=== PATIENT | female | born 2000 | race Caucasian/White ===

== ENCOUNTER 2020-06-28 17:40 | Outpatient (REF) | payer MEDICAID, SELFPAY | END 2020-06-28 17:41 | disposition home or self-care (01) | LOC: HO.LAB 17:40 | PROVIDERS: Visit Provider Internal Medicine | DX: Z20.828 Contact with and (suspected) exposure to other viral communicable diseases (principal) | CPT/HCPCS: C9803; U0003 ==

== ENCOUNTER 2020-07-20 10:44 | Emergency (ER) | payer MEDICAID, SELFPAY ==
[2020-07-20 11:43] VITALS: BP 94/38; PULSE 65; RESP 18; TEMP 36.9; O2SAT 100; BMI 20.1
--- NOTE | 2020-07-20 11:54 | ED_ITS ---
HPI - Female Genitourinary General Chief complaint: Urogenital-Female Stated complaint: unable to urinate Time Seen by Provider: 07/20/20 11:54 Source: patient Mode of arrival: ambulatory Limitations: no limitations History of Present Illness HPI Narrative: Pain and frequency for one week, no blood. Denies current . MD elicited complaint: dysuria Onset (ago): week(s) Severity: moderate Urinary symptoms: Dysuria and Frequency Related Data Previous Rx's Medication Instructions Recorded cephalexin [Keflex] 500 mg PO QID #20 cap 07/20/20 Allergies Allergy/AdvReac Type Severity Reaction Status Date / Time No Known Allergies Allergy Verified 07/20/20 11:46 Review of Systems Constitutional: Constitutional: Reports no additional constitutional complaints Eyes: Eyes: Reports no additional eye complaints ENT: Denies dizziness Cardiovascular: Cardiovascular: Reports no additional cardiovascular complaints Respiratory: Respiratory: Reports as per HPI Gastrointestinal: Gastrointestinal: Reports no additional gastrointestinal complaints Genitourinary: Genitourinary: Reports no additional female genitourinary complaints Musculoskeletal: Musculoskeletal: Reports no additional musculoskeletal complaints Integumentary/Breasts: Skin/Breast: Denies rash Neurologic: Reports system reviewed and no additional complaints, except as documented, Denies dizziness and Denies Sensory deficit (Neuro) Psychiatric: Psychiatric: Denies anxiety [facility] Past Medical History Medical History No known health problems Social History Social History Advance Directives: No Advance Directives Information Provided: Yes Physical Exam Vital Signs: Vital Signs: Last Vital Signs Temp 98.4 F 07/20/20 11:43 Pulse 65 07/20/20 11:43 Resp 18 07/20/20 11:43 BP 94/38 L 07/20/20 11:43 Pulse Ox 100 07/20/20 11:43 Body Mass Index 20.1 Const: General: healthy appearing Nutritional Appearance: average body habitus Orientation/consciousness: oriented to person and patient oriented x3 Limitations: no limitations HENMT: Head: Yes normal to inspection Ears: external ears normal General nose exam: Normal external nose present Mouth: Normal oral and palatal mucosa present and oropharynx normal Throat: Yes posterior oropharynx normal Eyes: General: appearance normal, both eyes and all related structures Neck: Other: supple Neck: Yes normal visual inspection Chest: Chest palpation & inspection: normal inspection of the chest Resp: Auscultation: clear to auscultation bilaterally Cardio: Jugular venous distension: no JVD Rate: regular rate Rhythm: regular rhythm Heart sounds: S1 normal heart sound present and S2 normal heart sound present GI: Inspection: Yes normal to inspection Palpation (GI): Soft to palpation, nontender and No hepatosplenomegaly present Auscultation: normal bowel sounds : General: Yes no CVA tenderness Back/Spine/Pelvis: Back: no CVA tenderness Skin: General skin exam: no rashes or lesions noted Neuro: General: oriented to person and patient oriented x3 Cranial nerves: Yes CN's II-XII intact bilaterally Motor exam (neuro): 5/5 motor strength present throughout Sensory Exam: No Sensory deficit (Neuro) Extrem: General: Yes normal to inspection Psych: Appearance: grossly normal Course Course Course Narrative: UA consistent with UtI will dc on keflex MDM - Female Genitourinary Differential Diagnosis Differential diagnosis: Likely urinary tract infection and cystitis Lab Data Labs: Lab Results 07/20/20 Range/Units 12:10 Urine Color YELLOW Urine Appearance CLOUDY Urine pH 6.5 (5.0-8.0) Ur Specific [place] 1.025 (1.005-1.025) Urine Protein 1+ H (NEG-TRACE) MG/DL Urine Glucose (UA) NEG (NEG) MG/DL Urine Ketones NEG (NEG) MG/DL Urine Blood 3+ H (NEG) Urine Nitrite NEG (NEG) Ur Leukocyte Esterase 1+ H (NEG) Urine RBC 15-29 H (0) /HPF Urine WBC 15-29 H (0-4) /HPF Ur Squamous Epith Cells 2+ /LPF Urine Bacteria 1+ /LPF Urine Mucus 2+ /LPF Urine Test NEGATIVE (NEGATIVE) Discharge Plan Discharge Clinical Impression: Urinary tract infection Patient Disposition: Home, Self-Care Instructions: Urinary Tract Infection in Women (ED), Dysuria (ED) Prescriptions: New cephalexin [Keflex] 500 mg capsule 500 mg PO QID Qty: 20 RF: 0 Referrals: Mesfin Cabrales NP [Primary Care Provider] - 2 days
[2020-07-20 12:22] LABS: Appearance Urine CLOUDY; Color Urine YELLOW; Glucose Urine UA NEG (NEG); Leukocyte Esterase Urine 1+ (NEG); Nitrite Urine NEG (NEG); PH 6.5 (5.0-8.0); Specific Gravity - Urine 1.025 (1.005-1.025); Urine Blood 3+ (NEG); Urine Ketones NEG (NEG); Urine Protein 1+ MG/DL (NEG-TRACE)
[2020-07-20 12:23] LABS: UPreg QC Valid YES; Urine Pregnancy NEGATIVE (NEGATIVE)
[2020-07-20 12:36] LABS: Bacteria Urine 1+ /LPF; Mucus Urine 2+ /LPF; Squamous Epithelial Cell Urine 2+ /LPF
[2020-07-20] MEDS: cephALEXin 500 MG CAPSULE PO (13:13)
== END 2020-07-20 13:18 | disposition home or self-care (01) ==
PROVIDERS: Emergency Provider Emergency Medicine; PCP Nurse Practitioner Family
DX: N39.0 Urinary tract infection, site not specified (principal)
CPT/HCPCS: 81001; 81025; 87086; 99283

== ENCOUNTER 2020-07-25 16:34 | Emergency (ER) | payer MEDICAID, SELFPAY ==
[2020-07-25 16:44] VITALS: BP 100/60; PULSE 68; RESP 16; TEMP 36.6; O2SAT 99; BMI 19.2
[2020-07-25 17:03] LABS: Glucose Urine UA NEG (NEG); Leukocyte Esterase Urine NEG (NEG); Nitrite Urine NEG (NEG); PH 5.5 (5.0-8.0); Specific Gravity - Urine >= 1.030 (1.005-1.025); Urine Blood TRACE (NEG); Urine Ketones 5 MG/DL (NEG); Urine Protein 1+ MG/DL (NEG-TRACE)
[2020-07-25 17:05] LABS: Appearance Urine CLEAR; Color Urine YELLOW
[2020-07-25 17:21] LABS: Bacteria Urine TRACE /LPF; Mucus Urine 1+ /LPF; Squamous Epithelial Cell Urine TRACE /LPF
[2020-07-25 17:43] VITALS: BP 99/64; PULSE 63; RESP 16; TEMP 36.4; O2SAT 100
--- NOTE | 2020-07-25 17:45 | ED.FEMALEGU ---
HPI - Female Genitourinary General Chief complaint: Urogenital-Female Stated complaint: painful urination Time Seen by Provider: 07/25/20 17:14 Source: patient Mode of arrival: ambulatory Limitations: no limitations History of Present Illness HPI Narrative: 19-year-old female with no significant past medical history presents for dysuria. Was seen on 07/20/2020 and given Keflex for UTI. Patient then followed up with her primary care on 07/22/2020 and she was advised to stop taking the antibiotic. Patient presents with continued symptoms of UTI. She does not describe fevers, chills, abdominal pain, abdominal distention, weakness, or palpitations. She denies abnormal vaginal bleeding or vaginal discharge. MD elicited complaint: dysuria and UTI Onset (ago): day(s) (5) Severity: moderate Female Urogenital Radiation: Non-Radiating Severity scale (1-10): 6 Quality of pain: burning Consistency: intermittent (Only when voiding) Vaginal discharge: none Vaginal bleeding: none Urinary symptoms: Dysuria Exacerbating factors: urination Associated symptoms: denies other symptoms Treatment prior to arrival: none Sexual activity: Yes Patient : No Related Data Previous Rx's Medication Instructions Recorded cephalexin [Keflex] 500 mg PO QID #20 cap 07/20/20 cephalexin [Keflex] 500 mg PO Q6H 3 Days #12 cap 07/25/20 phenazopyridine [Pyridium] 200 mg PO TID PRN #10 tab 07/25/20 Allergies Allergy/AdvReac Type Severity Reaction Status Date / Time No Known Allergies Allergy Verified 07/20/20 11:46 Review of Systems Review of Systems: Constitutional: No Fever, No Chills ENT/Mouth: No sore throat Eyes: No Eye Pain, No Swelling, No Redness Cardiovascular: No Chest Pain, No SOB Respiratory: No Cough, No Sputum, No Wheezing Gastrointestinal: No Nausea, no Vomiting, No Diarrhea, no abdominal pain Genitourinary: positive Dysuria, positive urinary frequency, no Hematuria, no Flank Pain, no hesitancy Musculoskeletal: No joint pain, No Myalgias Skin: No Skin Lesions, No rash Neuro: No Weakness, No Numbness, No Headache Psych: No Anxiety/Panic, No Depression Heme/Lymph: No Bruising, No Lymphadenopathy Endocrine: No Polyuria, No Polydipsia Yes all other systems are reviewed and are negative PMFSH Past Medical History Attestation statement: The following information was validated with the patient. Source: old records reviewed Medical History No known health problems Social History Social History Smoking Status: Never smoker Use of substances other than those prescribed or required for medical reasons: No Advance Directives: No Advance Directives Information Provided: No Physical Exam Vital Signs: Vital Signs: Last Vital Signs Temp 97.5 F 07/25/20 17:43 Pulse 63 07/25/20 17:43 Resp 16 07/25/20 17:43 BP 99/64 07/25/20 17:43 Pulse Ox 100 07/25/20 17:43 Body Mass Index 19.2 Appearance: Alert. Oriented X3. No acute distress. Eyes: Pupils equal, round and reactive to light. ENT: Pharynx normal. Neck: Normal inspection. Neck supple. CVS: Normal heart rate and rhythm. Pulses normal. Respiratory: No respiratory distress. Breath sounds normal. Abdomen: Soft and nontender. Skin: Skin warm and dry. Normal skin color. Normal skin turgor. Extremities: No lower extremity edema. Neuro: No motor deficit. No sensory deficit. Course Course Course Narrative: 19-year-old female with no significant past medical history recently treated for UTI, was told by her primary care physician to stop taking the Keflex that was prescribed to her on 07/20/2020. Plans to repeat urinalysis and U preg. Urinalysis indicative of UTI. We will restart her Keflex and give Pyridium for pyuria. test is negative. Patient verbalized understanding of and agrees to plan of care to discharge home. MDM - Female Genitourinary Differential Diagnosis Differential diagnosis: Likely urinary tract infection and cystitis Medical Records Attestation: I reviewed the patient's medical records. Lab Data Attestation: I reviewed the patient's lab results. Labs: Lab Results 07/25/20 07/25/20 Range/Units 16:52 17:58 Urine Color YELLOW Urine Appearance CLEAR Urine pH 5.5 (5.0-8.0) Ur Specific [place] >= 1.030 H (1.005-1.025) Urine Protein 1+ H (NEG-TRACE) MG/DL Urine Glucose (UA) NEG (NEG) MG/DL Urine Ketones 5 (NEG) MG/DL Urine Blood TRACE (NEG) Urine Nitrite NEG (NEG) Ur Leukocyte Esterase NEG (NEG) Urine RBC 1-4 (0) /HPF Urine WBC 1-4 (0-4) /HPF Ur Squamous Epith Cells TRACE /LPF Urine Bacteria TRACE /LPF Urine Mucus 1+ /LPF Urine Test NEGATIVE (NEGATIVE) Discharge Plan Discharge Clinical Impression: Urinary tract infection Patient Disposition: Home, Self-Care Instructions: Urinary Tract Infection in Women (ED) Additional Instructions: Urinalysis is positive for urinary tract infection. Please take Keflex as directed. We prescribed Pyridium to help with pain. This medication will turn your urine bright orange. This bright orange urine may stain your clothing and skin. This is a normal side effect of this medication. May consider taking Motrin and Tylenol as needed for pain management. Thank you for choosing this emergency department for evaluation. Please follow-up with primary care physician as needed. Return to the emergency department for any new, concerning, or worsening symptoms. Prescriptions: New cephalexin [Keflex] 500 mg capsule 500 mg PO Q6H 3 Days Qty: 12 RF: 0 phenazopyridine [Pyridium] 200 mg tablet 200 mg PO TID PRN (Reason: pain) Qty: 10 RF: 0 No Action cephalexin [Keflex] 500 mg capsule 500 mg PO QID Qty: 20 RF: 0 Interventions: ED Discharge Assessment Last Done: 07/25/20 18:59 Discharge Date/Time: 07/25/20 18:59
[2020-07-25] MEDS: Phenazopyridine HCL 200 MG TABLET PO (17:56)
[2020-07-25 18:03] LABS: Urine Pregnancy NEGATIVE (NEGATIVE)
[2020-07-25 18:04] LABS: UPreg QC Valid YES
== END 2020-07-25 18:59 | disposition home or self-care (01) ==
PROVIDERS: Nurse Practitioner Family; Emergency Provider Emergency Medicine Emergency Medical Services
DX: N39.0 Urinary tract infection, site not specified (principal); R30.0 Dysuria; Z79.899 Other long term (current) drug therapy
CPT/HCPCS: 81001; 81003; 81025; 99283; 99284

== ENCOUNTER 2020-10-13 13:03 | Outpatient (REF) | payer MEDICAID, SELFPAY ==
[2020-10-13 13:48] LABS: COVID-19 Test Negative (Negative); IDNOW Serial# 55D5AD1C
== END 2020-10-13 13:04 | disposition home or self-care (01) ==
LOC: HO.LAB 13:03
PROVIDERS: Visit Provider Internal Medicine
DX: Z20.822 Contact with and (suspected) exposure to COVID-19 (principal)
CPT/HCPCS: 36415; 87635; C9803

== ENCOUNTER 2020-11-29 14:07 | Emergency (ER) | payer MEDICAID, SELFPAY ==
[2020-11-29 14:41] VITALS: BP 101/64; PULSE 52; RESP 17; TEMP 36; O2SAT 100; BMI 18.8
--- NOTE | 2020-11-29 16:06 | ED.HA ---
HPI - Headache General Chief Complaint: Headache Stated Complaint: HEADACHE NAUSEA Time Seen by Provider: 11/29/20 15:46 Source: patient Mode of arrival: ambulatory Limitations: no limitations History of Present Illness HPI Narrative: 20-year-old female who presents emergency department for evaluation of headache. The patient states that 4 days prior she developed a left-sided headache. The pain came on gradually and got progressively worse. States the pain has been constant but waxes and wanes in intensity. She states that the pain is 9/10 at its worse and is currently 7/10. She points to her left frontal and parietal area when asked to localize the pain. She describes it as a pounding sensation is if someone is punching her on the side of the head. She states that she occasionally gets headaches but this headache is different than her previous headaches. The pain is associated with nausea but no vomiting. She states she has had intermittent photophobia but no phonophobia. She denied numbness or weakness. She denied neck pain, fever, chills, rhinorrhea, cough, chest pain, shortness of breath, abdominal pain. The patient states that her menstrual period is late, with her last normal menstrual period being October 25, 2020. She did take a home test which was negative. Related Data Previous Rx's Medication Instructions Recorded cephalexin [Keflex] 500 mg PO QID #20 cap 07/20/20 cephalexin [Keflex] 500 mg PO Q6H 3 Days #12 cap 07/25/20 phenazopyridine [Pyridium] 200 mg PO TID PRN #10 tab 07/25/20 metoclopramide HCl [Reglan] 10 mg PO Q6H PRN #14 tab 11/29/20 Allergies Allergy/AdvReac Type Severity Reaction Status Date / Time No Known Allergies Allergy Verified 07/20/20 11:46 Review of Systems Review of Systems: Yes all other systems are reviewed and are negative [facility] Past Medical History [facility] Narrative: Past medical history: None. Past surgical history: The patient had a heart surgery when she was a child, she is not certain but believes that she may have had ?a hole in her heart ?. This was done at [facility]. Social history: The patient denies tobacco, alcohol and drug use. Medical History No known health problems Social History Social History Advance Directives: Yes Advance Directives Information Provided: No Advance Directives on File: No Patient : No Physical Exam Vital Signs: Vital Signs: Last Vital Signs Temp 96.8 F 11/29/20 14:41 Pulse 52 11/29/20 14:41 Resp 17 11/29/20 14:41 BP 101/64 11/29/20 14:41 Pulse Ox 100 11/29/20 14:41 Body Mass Index 18.8 Const: General: cooperative and healthy appearing Orientation/consciousness: oriented to person and oriented to place Limitations: no limitations HENMT: Other: No tenderness with palpation over the temporal areas or sinuses Head: Yes normal to inspection, Yes normocephalic and Yes atraumatic Ears: external ears normal General nose exam: Normal external nose present Face and sinus: Yes normal facial exam Mouth: Normal oral and palatal mucosa present Throat: Yes posterior oropharynx normal Eyes: Periorbital: periorbital findings normal Eyelids: Yes eyelids normal Conjunctivae: conjunctivae normal Sclerae: sclerae normal Corneas: corneas normal Pupils: Equal, round and reactive pupils present Direct Ophthalmoscopy: normal light reflex Neck: Neck: Yes full ROM, Yes no lymphadenopathy, Yes no meningeal signs, Yes trachea midline and Yes supple Chest: Chest palpation & inspection: normal inspection of the chest and normal palpation of entire chest wall Resp: Effort & Inspection: normal respiratory effort and able to speak in complete sentences Auscultation: clear to auscultation bilaterally Cardio: Rate: regular rate Rhythm: regular rhythm Heart sounds: S1 normal heart sound present, S2 normal heart sound present and no murmurs GI: Inspection: Yes normal to inspection Palpation (GI): Soft to palpation, nontender, no guarding, not rigid and No hepatosplenomegaly present : General: Yes no CVA tenderness Back/Spine/Pelvis: Back: no CVA tenderness Cervical Spine: normal cervical lordosis Thoracic/Lumbar Spine: thoracic and lumbar spine normal to inspection Skin: Lesions: no lesions Rashes: no rashes Wounds: no wounds Neuro: General: oriented to person, oriented to place and no meningeal signs Cranial nerves: Yes CN's II-XII intact bilaterally and Yes Equal, round and reactive pupils present Cognition (Neuro): normal cognition Motor exam (neuro): 5/5 motor strength present throughout Extrem: General: Yes normal to inspection and Yes full ROM Psych: Appearance: well kempt Mental Status: mental status grossly normal Speech and movement: Normal speech and movement present Affect: normal affect Attitude: cooperative Thought process: Normal thought process present Thought content: Normal thought content present Course Course Course Narrative: 20-year-old female who presents emergency department for evaluation left-sided headache which started gradually 4 days prior, has been constant but waxes and wanes in intensity and is 9/10 at its worst. Headache associated with nausea and occasional photophobia with no other associated symptoms. Physical examination was unremarkable. Urine test was ordered since the patient menstrual period is late this month. The patient's presentation is consistent with an acute migraine syndrome. Her migraine was treated with Reglan 10 mg IV, Benadryl 25 mg IV and Toradol 30 mg IV. 1640: Patient's urine test was negative. The patient has not received her medications yet and my shift is over. I will sign the patient's care over to my colleague, Dr. Darleen Myles. MDM - Headache Lab Data Labs: Lab Results 11/29/20 Range/Units 16:23 Urine Test NEGATIVE (NEGATIVE) Discharge Plan Discharge Clinical Impression: Migraine, Nausea Patient Disposition: Home, Self-Care Instructions: Migraine Headache (ED) Additional Instructions: Your urine test was negative. If you do not have a period within the next 2 weeks then repeat her home test. Prescriptions: New metoclopramide HCl [Reglan] 10 mg tablet 10 mg PO Q6H PRN (Reason: nausea and vomiting) Qty: 14 RF: 0 No Action cephalexin [Keflex] 500 mg capsule 500 mg PO QID Qty: 20 RF: 0 cephalexin [Keflex] 500 mg capsule 500 mg PO Q6H 3 Days Qty: 12 RF: 0 phenazopyridine [Pyridium] 200 mg tablet 200 mg PO TID PRN (Reason: pain) Qty: 10 RF: 0
[2020-11-29 16:32] LABS: UPreg QC Valid YES; Urine Pregnancy NEGATIVE (NEGATIVE)
[2020-11-29 17:10] VITALS: BP 110/60; PULSE 55; RESP 17; TEMP 36.4; O2SAT 100
[2020-11-29] MEDS: 0.9 % Sodium Chloride 1,000 ML 999 ML IV (17:12)
[2020-11-29] MEDS: diphenhydrAMINE HCL 50 MG/ML VIAL 25 MG IVPUSH (17:13)
[2020-11-29] MEDS: Ketorolac Tromethamine 30 MG/ML VIAL IVPUSH (17:13)
[2020-11-29] MEDS: Metoclopramide HCl 10 MG/2 ML VIAL IVPUSH (17:13)
== END 2020-11-29 19:21 | disposition home or self-care (01) ==
PROVIDERS: Emergency Provider Emergency Medicine Emergency Medical Services
DX: G43.909 Migraine, unspecified, not intractable, without status migrainosus (principal); R11.0 Nausea
CPT/HCPCS: 81025; 96361; 96374; 96375; 99284; J1200; J1885; J2765

== ENCOUNTER 2021-04-21 13:17 | Emergency (ER) | payer MEDICAID, SELFPAY ==
[2021-04-21] VITALS (11 sets, daily range): BP systolic 90–105; BP diastolic 49–72; PULSE 56–82; RESP 14–18; TEMP 36.2–37.1; O2SAT 98–100; BMI 18.8
--- NOTE | ~2021-04-21 | US_ITS ---
EXAMINATION: US PELVIS CLINICAL INFORMATION: Heavy vaginal bleeding COMPARISON: None TECHNIQUE: Ultrasound of the pelvis is performed using both transabdominal only. FINDINGS: Uterus: Uterus is 9 by 4 x 4 0.6 cm. Anteverted. Endometrial thickness is measured at 9 mm by the knot borer. Incomplete visualization of the uterus. Incomplete visualization of the endometrial canal. The right ovary is 3.6 x 2.5 x 2.8 cm. Normal-appearing. Normal surrounding vascularity. The left ovary is not seen. No obvious free fluid or adnexal mass. US/US pelvic and transvaginal IMPRESSION: Limited exam. Patient refuses the transvaginal study. Overlying bowel gas limits this study. The endometrial canal is measured by the knot borer at 9 mm but only segmentally seen. This may be within normal limits for later phase of the cycle. Otherwise hyperplasia or polyp formation cannot be excluded. Consider follow-up The left ovary is not seen. The right ovary is felt to be within normal limits. No free fluid or obvious adnexal mass
--- NOTE | 2021-04-21 17:20 | ED.FEMALEGU ---
HPI - Female Genitourinary General Chief complaint: Vaginal Bleeding Stated complaint: DIZZY HOT AND COLD Time Seen by Provider: 04/21/21 17:09 Source: patient Mode of arrival: ambulatory Limitations: no limitations History of Present Illness HPI Narrative: Patient comes emergency room complaining of heavy vaginal bleeding, dizziness. Patient states about a month ago she had her normal menstrual period, however, her. Never stopped, continued throughout the month. Patient states that for the last 2 days she has being having heavy vaginal bleeding. Patient denies ever being . Patient denies fever, complaining of chills. Patient denies passing out Related Data Previous Rx's Medication Instructions Recorded cephalexin 500 mg capsule (Keflex) 500 mg PO QID #20 cap 07/20/20 cephalexin 500 mg capsule (Keflex) 500 mg PO Q6H 3 Days #12 cap 07/25/20 phenazopyridine 200 mg tablet 200 mg PO TID PRN #10 tab 07/25/20 (Pyridium) metoclopramide HCl 10 mg tablet 10 mg PO Q6H PRN #14 tab 11/29/20 (Reglan) medroxyprogesterone 10 mg tablet 10 mg PO DAILY 21 Days #21 tab 04/22/21 (Provera) Allergies Allergy/AdvReac Type Severity Reaction Status Date / Time No Known Allergies Allergy Verified 07/20/20 11:46 Review of Systems Review of Systems: Constitutional : No Weight loss, No Fever, No Chills, No Night Sweats, No Fatigue, No Malaise ENT/Mouth : No Hearing loss, No Ear Pain, No Nasal Congestion, No Sinus Pain, No Hoarseness, No sore throat, No Rhinorrhea, No Swallowing Difficulty Eyes: No Eye Pain, No Swelling, No Redness, No Foreign Body, No Discharge, No Vision Changes Cardiovascular : No Chest Pain, No SOB, No Dyspnea on Exertion, No Orthopnea, No Edema, No Palpitations Respiratory : No Cough, No Sputum, No Wheezing, No Smoke Exposure, No Dyspnea Gastrointestinal : No Nausea, No Vomiting, No Diarrhea, No Constipation, No abdominal Pain, No Hematochezia, No Melena Genitourinary : Complaining of heavy and prolonged vaginal bleeding, No Dysuria, No Urinary Frequency, No Hematuria, No Urinary Incontinence, No Urgency, No Flank Pain, No Urinary Flow Changes, No Hesitancy Musculoskeletal : No joint pain, No Myalgias, No Joint Swelling Skin : No Skin Lesions, No rash Neuro : No Weakness, No Numbness, No Paresthesias, No Loss of Consciousness, no headache, complaining of lightheadedness Psych : No Anxiety/Panic, No Depression, No SI/HI/AH/VH, No Social Issues, Heme/Lymph: No Bruising, No Bleeding,No Lymphadenopathy Endocrine : No Polyuria, No Polydipsia, No Temperature Intolerance [facility] Past Medical History Medical History No known health problems Social History Social History Alcohol intake: never Patient Tobacco Use Status: Never used Tobacco Use of substances other than those prescribed or required for medical reasons: No Advance Directives: No Advance Directives Information Provided: No Patient : No Physical Exam Vital Signs: Vital Signs: Last Vital Signs Temp 98.4 F 04/21/21 23:29 Pulse 62 04/21/21 23:29 Resp 16 04/21/21 23:29 BP 93/51 L 04/21/21 23:29 Pulse Ox 98 04/21/21 23:29 Body Mass Index 18.8 Const: Other: Appearance: Alert. Oriented X3. No acute distress. Eyes: Pupils equal, round and reactive to light. ENT: Pharynx normal. Neck: Normal inspection. Neck supple. No lymph nodes noted. No crepitus CVS: Normal heart rate and rhythm. Pulses normal. Normal S1 and S2 Respiratory: No respiratory distress. Breath sounds normal. No Wheezing. No rales Abdomen: Soft and nontender. No rigidity. No distention. : Small to moderate amount of blood visualized in the vaginal vault, approximately 10 mL of blood, no active cervical bleeding visualized Skin: Skin warm and dry. Mild diffuse pallor Extremities: No lower extremity edema. No Lacerations. No Rash Neuro: Oriented X 3. No motor deficit. No sensory deficit. Moving all extermities. No slurred speech. Course Course Course Narrative: I discussed with the patient that given her symptoms, the prolonged bleeding and her low hemoglobin of 7.4, I recommend a blood transfusion. I discussed thoroughly with the patient risks versus benefits of the transfusion, patient consents for the blood transfusion. Ultrasound pending I was informed that the patient refused the transvaginal ultrasound. The ultrasound report is limited. Patient received 1 unit of, levels improved to 8.7. Patient states that she feels much better. Blood pressure 100 systolic. I discussed the patient with Dr. Pringle. Patient will be started on Provera 10 mg daily for 3 weeks. Patient states that she does not have history of migraines, does not smoke. Patient agrees with plan. MDM - Female Genitourinary Lab Data Result diagrams: 04/22/21 00:01 04/21/21 18:31 Labs: Lab Results 04/21/21 04/21/21 04/21/21 Range/Units 18:31 18:31 18:32 WBC 10.6 (4.8-10.8) X10*3/uL RBC 3.50 L (4.20-5.50) X10*6/uL Hgb 7.4 L (12.0-16.0) g/dl Hct 24.5 L (37-47) % MCV 70.0 L (80-98) fL MCH 21.1 L (27.0-33.0) pg MCHC 30.2 L (31.0-35.0) g/dl RDW 17.9 H (11.0-16.0) % Plt Count 271 (160-400) X10*3/uL MPV 12.0 (9.4-12.3) fL Immature Gran % (Auto) 0.5 H (0.0-0.4) % Neut % (Auto) 63.4 (45-73) % Lymph % (Auto) 23.1 (20-40) % [place] % (Auto) 10.7 (2-11) % Eos % (Auto) 1.7 (0-4) % Baso % (Auto) 0.6 (0-2) % Lymph # (Auto) 2.4 (1.2-4.9) X10*3/uL [place] # (Auto) 1.1 (0.1-1.2) X10*3/uL Eos # (Auto) 0.2 (0.0-0.4) X10*3/uL Baso # (Auto) 0.1 (0.0-0.2) X10*3/uL Abs Immat Gran (auto) 0.05 H (0.00-0.03) X10*3/uL Absolute Neuts (auto) 6.7 (2.0-8.3) X10*3/uL Absolute Nucleated RBC 0.000 (0.0-0.012) X10*3/uL Nucleated RBC % (auto) 0.0 (0.0-0.2) /100WBC Sodium 139 (135-145) mmol/L Potassium 3.8 (3.3-5.1) mmol/L Chloride 106 (96-108) mmol/L Carbon Dioxide 25 (22-29) mmol/L Anion Gap 12 (12-20) BUN 11 (9-16) mg/dL Creatinine 0.73 (0.5-1.4) mg/dL Estim Creat Clear Calc 90.6 Estimated GFR > 60 Random Glucose 95 (60-115) mg/dL Calcium 9.3 (8.4-10.2) mg/dL Total Bilirubin 0.2 (0.0-1.0) mg/dL Direct Bilirubin < 0.2 (0.0-0.5) mg/dL AST 22 (5-31) U/L ALT 15 (0-31) U/L Alkaline Phosphatase 74 (39-117) U/L Total Protein 7.2 (6.5-8.0) g/dL Albumin 4.0 (3.5-5.0) g/dL Beta HCG, Quant < 2 mIU/mL Urine Color BROWN Urine Appearance CLOUDY Urine pH 6.5 (5.0-8.0) Ur Specific [place] 1.020 (1.005-1.025) Urine Protein 2+ H (NEG-TRACE) MG/DL Urine Glucose (UA) NEG (NEG) MG/DL Urine Ketones 15 (NEG) MG/DL Urine Blood 3+ H (NEG) Urine Nitrite NEG (NEG) Ur Leukocyte Esterase TRACE H (NEG) Urine RBC TNTC H (0) /HPF Urine WBC 5-9 H (0-4) /HPF Ur Squamous Epith Cells 2+ /LPF Urine Bacteria 1+ /LPF Urine Mucus 3+ /LPF Blood Type Antibody Screen Crossmatch 04/21/21 04/22/21 Range/Units 19:46 00:01 WBC (4.8-10.8) X10*3/uL RBC (4.20-5.50) X10*6/uL Hgb 8.7 L (12.0-16.0) g/dl Hct 27.7 L (37-47) % MCV (80-98) fL MCH (27.0-33.0) pg MCHC (31.0-35.0) g/dl RDW (11.0-16.0) % Plt Count (160-400) X10*3/uL MPV (9.4-12.3) fL Immature Gran % (Auto) (0.0-0.4) % Neut % (Auto) (45-73) % Lymph % (Auto) (20-40) % [place] % (Auto) (2-11) % Eos % (Auto) (0-4) % Baso % (Auto) (0-2) % Lymph # (Auto) (1.2-4.9) X10*3/uL [place] # (Auto) (0.1-1.2) X10*3/uL Eos # (Auto) (0.0-0.4) X10*3/uL Baso # (Auto) (0.0-0.2) X10*3/uL Abs Immat Gran (auto) (0.00-0.03) X10*3/uL Absolute Neuts (auto) (2.0-8.3) X10*3/uL Absolute Nucleated RBC (0.0-0.012) X10*3/uL Nucleated RBC % (auto) (0.0-0.2) /100WBC Sodium (135-145) mmol/L Potassium (3.3-5.1) mmol/L Chloride (96-108) mmol/L Carbon Dioxide (22-29) mmol/L Anion Gap (12-20) BUN (9-16) mg/dL Creatinine (0.5-1.4) mg/dL Estim Creat Clear Calc Estimated GFR Random Glucose (60-115) mg/dL Calcium (8.4-10.2) mg/dL Total Bilirubin (0.0-1.0) mg/dL Direct Bilirubin (0.0-0.5) mg/dL AST (5-31) U/L ALT (0-31) U/L Alkaline Phosphatase (39-117) U/L Total Protein (6.5-8.0) g/dL Albumin (3.5-5.0) g/dL Beta HCG, Quant mIU/mL Urine Color Urine Appearance Urine pH (5.0-8.0) Ur Specific [place] (1.005-1.025) Urine Protein (NEG-TRACE) MG/DL Urine Glucose (UA) (NEG) MG/DL Urine Ketones (NEG) MG/DL Urine Blood (NEG) Urine Nitrite (NEG) Ur Leukocyte Esterase (NEG) Urine RBC (0) /HPF Urine WBC (0-4) /HPF Ur Squamous Epith Cells /LPF Urine Bacteria /LPF Urine Mucus /LPF Blood Type O Positive Antibody Screen NEGATIVE Crossmatch See Detail Critical Care Time Critical Care Time Critical Care Time: Yes Total Critical Care Time: 60 Attestation: 60 minutes were spent in direct patient care, stabilization. Discharge Plan Discharge Clinical Impression: Abnormal uterine bleeding (AUB), Anemia Patient Disposition: Home, Self-Care Instructions: Dysfunctional Uterine Bleeding (ED), Anemia (ED) Additional Instructions: Please follow-up with your primary care physician tomorrow. If you have any worsening or new symptoms, please return to the emergency room or call 911 Prescriptions: New medroxyprogesterone [Provera] 10 mg tablet 10 mg PO DAILY 21 Days Qty: 21 RF: 0 No Action cephalexin [Keflex] 500 mg capsule 500 mg PO QID Qty: 20 RF: 0 cephalexin [Keflex] 500 mg capsule 500 mg PO Q6H 3 Days Qty: 12 RF: 0 phenazopyridine [Pyridium] 200 mg tablet 200 mg PO TID PRN (Reason: pain) Qty: 10 RF: 0 metoclopramide HCl [Reglan] 10 mg tablet 10 mg PO Q6H PRN (Reason: nausea and vomiting) Qty: 14 RF: 0 Referrals: Roge Pringle MD [Physician] - 2 days
[2021-04-21 18:42] LABS: MANUAL DIFF FLAG NO
[2021-04-21 18:43] LABS: Basophils Absolute Auto 0.1 X10*3/uL (0.0-0.2); Basophils Percent Auto 0.6 % (0-2); Eosinophils Absolute Auto 0.2 X10*3/uL (0.0-0.4); Eosinophils Percent Auto 1.7 % (0-4); Hematocrit 24.5 % (37-47); Hemoglobin 7.4 g/dl (12.0-16.0); Imm Gran Abs Auto 0.05 X10*3/uL (0.00-0.03); Imm Gran Pct Auto 0.5 % (0.0-0.4); Lymphocytes Absolute Auto 2.4 X10*3/uL (1.2-4.9); Lymphocytes Percent Auto 23.1 % (20-40); Mean Corpuscular HGB Conc 30.2 g/dl (31.0-35.0); Mean Corpuscular Hemoglobin 21.1 pg (27.0-33.0); Monocytes Absolute Auto 1.1 X10*3/uL (0.1-1.2); Monocytes Percent Auto 10.7 % (2-11); Neutrophils Absolute Auto 6.7 X10*3/uL (2.0-8.3); Neutrophils Percent Auto 63.4 % (45-73); Platelet Count 271 X10*3/uL (160-400); Red Cell Distribution Width 17.9 % (11.0-16.0); White Blood Count 10.6 X10*3/uL (4.8-10.8)
[2021-04-21 18:44] LABS: Appearance Urine CLOUDY; Color Urine BROWN; Glucose Urine UA NEG (NEG); Leukocyte Esterase Urine TRACE (NEG); Nitrite Urine NEG (NEG); PH 6.5 (5.0-8.0); UACC Culture Trigger YES; Urine Blood 3+ (NEG); Urine Ketones 15 MG/DL (NEG); Urine Protein 2+ MG/DL (NEG-TRACE)
[2021-04-21 18:50] LABS: RBC Urine TNTC /HPF (0)
[2021-04-21 18:52] LABS: Bacteria Urine 1+ /LPF; Mucus Urine 3+ /LPF; Squamous Epithelial Cell Urine 2+ /LPF
[2021-04-21 19:00] LABS: Alanine Aminotransferase 15 U/L (0-31); Alkaline Phosphatase 74 U/L (39-117); Anion Gap 12 (12-20); Aspartate Amino Transferase 22 U/L (5-31); Bilirubin Direct < 0.2 mg/dL (0.0-0.5); Bilirubin Total 0.2 mg/dL (0.0-1.0); Blood Urea Nitrogen 11 mg/dL (9-16); Calcium 9.3 mg/dL (8.4-10.2); Carbon Dioxide 25 mmol/L (22-29); Chloride 106 mmol/L (96-108); Creatinine Clr Calc Pharmacy 90.6; Estimated Glomerular Filt Rate > 60; Glucose Random 95 mg/dL (60-115); Potassium 3.8 mmol/L (3.3-5.1); Sodium 139 mmol/L (135-145); Total Protein 7.2 g/dL (6.5-8.0)
[2021-04-21 19:06] LABS: HCG Quantitative < 2 mIU/mL
--- NOTE | 2021-04-21 19:53 | PC.NURSE ---
Pt alert and oriented x4, clam and cooperative. Pt received pelvic exam with MD and RN present, pt complained of pain during exam noted to be crying out loud. Pt continues to have vaginal bleeding. Pt to receive blood transfusion and agrees to plan. IV intact, vitals stable. Pt resting in stretcher at this time, will continue to monitor.
[2021-04-21] MEDS: 0.9 % Sodium Chloride 1,000 ML 999 ML IVCONT (20:32)
--- NOTE | 2021-04-21 21:18 | P.CONOB_ITS ---
SITE OPERATIONS MANAGER - CN: HPI Data of Consult Consult date: 04/21/21 Primary Care Provider: Galina Andrade Consult Narrative Narrative: I was consulted Dr. Parra regarding Hugo Mariee who is a 20 year old female presented to the emergency room with a months history of vaginal bleeding. 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 - Review of Systems Review of Systems ROS Unobtainable: All systems reviewed & are unremarkable except as noted in HPI and below OB PMFSH Past Medical History Medical History No known health problems Social History Social History Alcohol intake: never Patient Tobacco Use Status: Never used Tobacco Use of substances other than those prescribed or required for medical reasons: No Advance Directives: No Advance Directives Information Provided: No Patient : No Meds Allergies Allergy/AdvReac Type Severity Reaction Status Date / Time No Known Allergies Allergy Verified 07/20/20 11:46 SITE OPERATIONS MANAGER Physical Exam Vitals Vital signs: Temp Pulse Resp BP Pulse Ox 98.4 F 60 16 105/59 L 100 04/21/21 21:15 04/21/21 21:15 04/21/21 21:15 04/21/21 21:15 04/21/21 21:07 Body Mass Index 18.8 Additional Comments: Pelvic exam performed by Dr. Parra 10-15 cc of blood in the vagina with no evidence of active bleeding normal vaginal gilliam and cervix SITE OPERATIONS MANAGER - Results Labs CBC & Chem 7: 04/21/21 18:32 04/21/21 18:31 Labs: Short CBC 04/21/21 Range/Units 18:32 WBC 10.6 (4.8-10.8) X10*3/uL Hgb 7.4 L (12.0-16.0) g/dl Hct 24.5 L (37-47) % Plt Count 271 (160-400) X10*3/uL BMP 04/21/21 18:31 Sodium 139 Potassium 3.8 Chloride 106 Carbon Dioxide 25 BUN 11 Creatinine 0.73 Calcium 9.3 Liver Function 04/21/21 Range/Units 18:31 Total Bilirubin 0.2 (0.0-1.0) mg/dL Direct Bilirubin < 0.2 (0.0-0.5) mg/dL AST 22 (5-31) U/L ALT 15 (0-31) U/L Alkaline Phosphatase 74 (39-117) U/L Albumin 4.0 (3.5-5.0) g/dL Urine 04/21/21 Range/Units 18:31 Urine Color BROWN Urine Appearance CLOUDY Urine pH 6.5 (5.0-8.0) Ur Specific [place] 1.020 (1.005-1.025) Urine Protein 2+ H (NEG-TRACE) MG/DL Urine Glucose (UA) NEG (NEG) MG/DL Antibody Screen Antibody Screen NEGATIVE 04/21/21 19:46 Imaging Ultrasound of pelvis: Radiologist's impression: ITS Impressions Pelvic/Transvag US 04/21/21 19:25 IMPRESSION: Limited exam. Patient refuses the transvaginal study. Overlying bowel gas limits this study. The endometrial canal is measured by the auto finance sales rep at 9 mm but only segmentally seen. This may be within normal limits for later phase of the cycle. Otherwise hyperplasia or polyp formation cannot be excluded. Consider follow-up The left ovary is not seen. The right ovary is felt to be within normal limits. No free fluid or obvious adnexal mass Assessment and Plan (1) Abnormal uterine bleeding (AUB): Status: Acute Recommended 1 unit of packed RBCs. With history of migraine recommended to start the patient on Provera 10 mg p.o. q.d., iron sulfate 325 mg p.o. t.i.d. and follow-up in the office in few days. Instructions to be given to the patient to come back to emergency room in case of heavy vaginal bleeding. I did not see the patient or examine her I was consulted on the phone regarding the patient's management
--- NOTE | 2021-04-21 21:18 | PC.NURSE ---
Blood transfusion started at 2100, pt tolerated first 15 minutes well. Blood continues to transfuse at this time and tolerating well. Pt denies any reactions, vitals remain stable. Pt resting in stretcher without issues, will continue to monitor closely.
--- NOTE | 2021-04-21 23:31 | PC.NURSE ---
Pt alert and oriented x4, calm and cooperative. Pt received 1 unit PRBC and tolerated well, denies reactions and vitals are stable. Pt denies pain. IV intact. Pt noted to continue to have vaginal bleeding, clots noted. Pt ate food and tolerated well. Pt resting in stretcher at this time, wioll continue to monitor.
[2021-04-22 00:06] LABS: Hematocrit 27.7 % (37-47); Hemoglobin 8.7 g/dl (12.0-16.0)
[2021-04-22] MEDS: 0.9 % Sodium Chloride 1,000 ML 999 ML IVCONT (00:06)
[2021-04-22 00:49] VITALS: BP 100/63; PULSE 63; RESP 15; TEMP 36.9; O2SAT 98
== END 2021-04-22 00:57 | disposition home or self-care (01) ==
PROVIDERS: Emergency Provider Emergency Medicine; PCP Nurse Practitioner
DX: N93.9 Abnormal uterine and vaginal bleeding, unspecified (principal); D64.9 Anemia, unspecified; R42 Dizziness and giddiness; Z79.899 Other long term (current) drug therapy
CPT/HCPCS: 36415; 36430; 76830; 76856; 80048; 80076; 81001; 84702; 85014; 85018; 85025; 86850; 86900; 86901; 86923; 87086; 96360; 99285; 99291; P9016

== ENCOUNTER 2021-05-04 13:37 | Inpatient (IN) | payer MEDICAID, SELFPAY ==
[2021-05-04] VITALS (10 sets, daily range): BP systolic 86–113; BP diastolic 41–64; PULSE 73–86; RESP 16–20; TEMP 36.9–38.1; O2SAT 97–99; BMI 18.6
--- NOTE | ~2021-05-04 | CT_ITS ---
EXAMINATION: CT abdomen pelvis w con CLINICAL INFORMATION: Reason for Exam Diffuse abdominal tenderness. vag bleeding. wbc 20.6. COMPARISON: No prior CT available for comparison. TECHNIQUE: Multidetector volumetric imaging was performed from the superior aspect of the liver through the pubic symphysis 85 mL Omnipaque 350 injected. Sagittal and coronal reformatted images were obtained on the technologist's workstation. This CT examination was performed using dose optimization techniques as appropriate, variously including the following: *Automated exposure control *Adjustment of mA and/or kV according to patient size (this includes techniques or standardized protocols for targeted exams where dose is matched to indication/reason for exam; i.e. extremities or head) *Use of iterative reconstruction technique DLP: 348 mGy-cm FINDINGS: LOWER THORAX: Included lung bases are clear. HEPATOBILIARY: No focal hepatic lesions. No biliary ductal dilatation. GALLBLADDER: Gallbladder unremarkable. SPLEEN: Spleen is normal in size. PANCREAS: No focal mass or ductal dilatation. STOMACH AND GASTROINTESTINAL TRACT: Stomach is grossly unremarkable. There is no bowel distention or thickening. No CT evidence of appendicitis. ADRENALS: No adrenal nodules. KIDNEYS/URETERS: No hydronephrosis, stones or solid mass lesions. URINARY BLADDER: Partially decompressed. PELVIC VISCERA: There is a fluid within the endometrium, ovaries are prominent normal for patient's young age. PERITONEUM: No free air or fluid. LYMPH NODES: No lymphadenopathy. VASCULAR:Abdominal aorta normal in size, no aneurysm found. BONES, ABDOMINAL WALL AND SOFT TISSUES: Age-appropriate changes of the spine and skeletal system, no destructive osteolytic or osteosclerotic bone lesion found CT/CT abdomen pelvis w con IMPRESSION: No CT explanation for patient's symptoms. There is a fluid and/or hypertrophy of the endometrial canal and prominence of the ovaries probably normal for patient's young age.
--- NOTE | ~2021-05-04 | US_ITS ---
EXAMINATION: US PELVIS CLINICAL INFORMATION: Pelvic pain COMPARISON: None TECHNIQUE: Ultrasound of the pelvis is performed using both transabdominal along with Doppler. Transvaginal imaging is performed due to inadequate visualization transabdominally. FINDINGS: The uterus is 7.4 x 3.3 x 5.6 cm. Anteverted. Endometrial thickness is 3 mm. The right ovary is measuring 4.6 x 2.5 x 1.9 cm. 11 mL. The left ovary is measuring 3.8 x 2.5 x 1.9 cm. Volume 10 mL. Doppler interrogation demonstrates normal ovarian vascularity. Normal arterial and venous flow seen No free fluid or obvious adnexal mass. US/US pelvic complete IMPRESSION: Transabdominal study. No suspicious finding. The ovaries are within normal limits. No free fluid or obvious adnexal mass.
--- NOTE | ~2021-05-04 | US_ITS ---
EXAMINATION: US PELVIS CLINICAL INFORMATION: Pelvic pain COMPARISON: None TECHNIQUE: Ultrasound of the pelvis is performed using both transabdominal along with Doppler. Transvaginal imaging is performed due to inadequate visualization transabdominally. FINDINGS: The uterus is 7.4 x 3.3 x 5.6 cm. Anteverted. Endometrial thickness is 3 mm. The right ovary is measuring 4.6 x 2.5 x 1.9 cm. 11 mL. The left ovary is measuring 3.8 x 2.5 x 1.9 cm. Volume 10 mL. Doppler interrogation demonstrates normal ovarian vascularity. Normal arterial and venous flow seen No free fluid or obvious adnexal mass. US/US pelvic ovarian doppler IMPRESSION: Transabdominal study. No suspicious finding. The ovaries are within normal limits. No free fluid or obvious adnexal mass.
--- NOTE | 2021-05-04 14:59 | ED.FEMALEGU ---
HPI - Female Genitourinary General Chief complaint: Vaginal Bleeding Stated complaint: vaginal bleeding, weakness, abd pain Time Seen by Provider: 05/04/21 14:40 Source: patient Mode of arrival: ambulatory History of Present Illness HPI Narrative: 20-year-old female with past medical history of abnormal uterine bleeding, presenting to the ED complaining of heavy vaginal bleeding x3 weeks, now with abdominal pain x3 days and lightheadedness with near syncope yesterday. Patient was seen and evaluated in our ED for similar symptoms on 04/21, transfused 1 unit PRBCs, had ultrasound that was unremarkable, started on Provera and Iron however patient reports noncompliance with Iron. Reports going through a box of pads yesterday and associated dysuria. Denies syncope, CP/SOB, vomiting, diarrhea/constipation MD elicited complaint: dysuria and vaginal bleeding Related Data Previous Rx's Medication Instructions Recorded cephalexin 500 mg capsule (Keflex) 500 mg PO QID #20 cap 07/20/20 cephalexin 500 mg capsule (Keflex) 500 mg PO Q6H 3 Days #12 cap 07/25/20 phenazopyridine 200 mg tablet 200 mg PO TID PRN #10 tab 07/25/20 (Pyridium) metoclopramide HCl 10 mg tablet 10 mg PO Q6H PRN #14 tab 11/29/20 (Reglan) medroxyprogesterone 10 mg tablet 10 mg PO DAILY 21 Days #21 tab 04/22/21 (Provera) Allergies Allergy/AdvReac Type Severity Reaction Status Date / Time No Known Allergies Allergy Verified 07/20/20 11:46 Review of Systems Review of Systems: Constitutional: No Fever, No Chills, No Fatigue, No Malaise ENT/Mouth: No Ear Pain, No Nasal Congestion, No Sinus Pain, No sore throat Eyes: No Eye Pain, No Swelling, No Redness Cardiovascular: No Chest Pain, No SOB, No Palpitations Respiratory: No Cough, No Dyspnea Gastrointestinal: No Nausea, No Vomiting, No Diarrhea, No Constipation, +Abdominal pain Genitourinary: + irregular bleeding, No Dysuria, No Urinary Frequency, No Hematuria, No Urgency, No Flank Pain Musculoskeletal: No joint pain, No Myalgias, No Joint Swelling Skin: No Skin Lesions, No rash Neuro: No Weakness, No Numbness, No Loss of Consciousness, + lightheadedness/ Dizziness, No Headache Yes all other systems are reviewed and are negative [facility] Past Medical History Attestation statement: The following information was validated with the patient. Medical History No known health problems Social History Social History Alcohol intake: never Patient Tobacco Use Status: Never used Tobacco Use of substances other than those prescribed or required for medical reasons: No Advance Directives: No Physical Exam Vital Signs: Vital Signs: Last Vital Signs Temp 100.6 F H 05/04/21 16:22 Pulse 86 05/04/21 16:22 Resp 16 05/04/21 16:22 BP 97/47 L 05/04/21 17:15 Pulse Ox 97 05/04/21 16:22 Body Mass Index 18.6 Const: General: cooperative, healthy appearing and no acute distress Orientation/consciousness: patient oriented x3 Limitations: no limitations HENMT: Head: Yes normal to inspection Ears: hearing grossly normal bilaterally General nose exam: Normal external nose present Face and sinus: Yes normal facial exam Eyes: General: appearance normal, both eyes and all related structures EOM: EOMs intact bilaterally Neck: Neck: Yes normal visual inspection Resp: Effort & Inspection: normal respiratory effort and no respiratory distress Cardio: Rate: regular rate Heart sounds: S1 normal heart sound present and S2 normal heart sound present GI: Other: Diffusely tender in lower abdomen, RLQ & LLQ Inspection: Yes normal to inspection Palpation (GI): Soft to palpation, Tenderness to palpation present (GI), no guarding and not rigid : Other: +small amount of blood in vaginal vault, cleared with Q-tip, no active bleeding/hemorrhage. Scant amount of yellow DC noted from cervix. No adnexal tenderness. +CMT General: Yes no CVA tenderness Back/Spine/Pelvis: Back: no CVA tenderness Skin: Rashes: no rashes Wounds: no wounds Neuro: General: patient oriented x3, tone normal and moves all extremities Gait exam (Neuro): Normal gait present Extrem: General: Yes normal to inspection Course Course Course Narrative: -1532--noted leukocytosis of 20.6 >> lactic and blood cultures added. Infection now suspected > will obtain CT abdomen/pelvis for further evaluation. - H&H stable at 8.2/26.6 -1645--febrile to 100.6, Toradol added. On pelvic exam scant vaginal bleeding and some yellow vaginal DC noted. + CMT. Concern for PID vs other intra-abdominal pathology. Empiric Ceftriaxone and Doxycycline ordered -lactic acid negative -1800--ED care transferred to [facility] pending CT abdomen/pelvis, re-evaluation, and dispo per results MDM - Female Genitourinary MDM Narrative Medical decision making narrative: 20-year-old female with past medical history of abnormal uterine bleeding, presenting to the ED complaining of heavy vaginal bleeding x3 weeks, now with abdominal pain x3 days and lightheadedness with near syncope yesterday. On exam hypotensive, NAD, abdomen soft with lower tenderness to palpation, no rebound or guarding, no CVAT. On pelvic small amount of vaginal bleeding noted, yellow DC noted,+ CMT, no adnexal tenderness. Concern for anemia/abnormal uterine bleeding. Rule out . Concern for PID vs appendicitis and diverticulitis vs UTI vs STI Low concern for severe sepsis at this time. Plan: EKG, labs, UA, type and screen, STI testing, orthostatics Medical Records Attestation: I reviewed the patient's medical records. Lab Data Attestation: I reviewed the patient's lab results. Result diagrams: 05/04/21 15:12 05/04/21 15:12 Labs: Lab Results 05/04/21 05/04/21 05/04/21 Range/Units 15:12 15:12 15:12 WBC 20.6 H (4.8-10.8) X10*3/uL RBC 3.58 L (4.20-5.50) X10*6/uL Hgb 8.2 L (12.0-16.0) g/dl Hct 26.6 L (37.0-47.0) % MCV 74.3 L (80.0-98.0) fL MCH 22.9 L (27.0-33.0) pg MCHC 30.8 L (31.0-35.0) g/dl RDW 20.8 H (11.0-16.0) % Plt Count 362 (160-400) X10*3/uL MPV 10.7 (9.4-12.3) fL Immature Gran % (Auto) 0.9 H (0.0-0.4) % Neut % (Auto) 90.2 H (45-73) % Lymph % (Auto) 3.5 L (20-40) % [place] % (Auto) 5.0 (2-11) % Eos % (Auto) 0.2 (0-4) % Baso % (Auto) 0.2 (0-2) % Lymph # (Auto) 0.7 L (1.2-4.9) X10*3/uL [place] # (Auto) 1.0 (0.1-1.2) X10*3/uL Eos # (Auto) 0.0 (0.0-0.4) X10*3/uL Baso # (Auto) 0.0 (0.0-0.2) X10*3/uL Abs Immat Gran (auto) 0.19 H (0.00-0.03) X10*3/uL Absolute Neuts (auto) 18.62 H (2.0-8.3) x10*3/uL Absolute Nucleated RBC 0.000 (0.0-0.012) X10*3/uL Nucleated RBC % (auto) 0.0 (0.0-0.2) /100WBC Smear Tech's Comments VERIFIED Sodium 135 (135-145) mmol/L Potassium 3.7 (3.3-5.1) mmol/L Chloride 106 (96-108) mmol/L Carbon Dioxide 21 L (22-29) mmol/L Anion Gap 12 (12-20) BUN 8 L (9-16) mg/dL Creatinine 0.76 (0.5-1.4) mg/dL Estim Creat Clear Calc 86.2 Estimated GFR > 60 Random Glucose 101 (60-115) mg/dL Lactic Acid (0.5-2.0) mmol/L Calcium 9.1 (8.4-10.2) mg/dL Magnesium 1.8 (1.6-2.6) mg/dL Total Bilirubin 0.5 (0.0-1.0) mg/dL Direct Bilirubin 0.2 (0.0-0.5) mg/dL AST 16 (5-31) U/L ALT 14 (0-31) U/L Alkaline Phosphatase 73 (39-117) U/L Total Protein 7.0 (6.5-8.0) g/dL Albumin 4.0 (3.5-5.0) g/dL Lipase 10 (8-78) U/L Blood Type O Positive Antibody Screen NEGATIVE 05/04/21 Range/Units 16:06 WBC (4.8-10.8) X10*3/uL RBC (4.20-5.50) X10*6/uL Hgb (12.0-16.0) g/dl Hct (37.0-47.0) % MCV (80.0-98.0) fL MCH (27.0-33.0) pg MCHC (31.0-35.0) g/dl RDW (11.0-16.0) % Plt Count (160-400) X10*3/uL MPV (9.4-12.3) fL Immature Gran % (Auto) (0.0-0.4) % Neut % (Auto) (45-73) % Lymph % (Auto) (20-40) % [place] % (Auto) (2-11) % Eos % (Auto) (0-4) % Baso % (Auto) (0-2) % Lymph # (Auto) (1.2-4.9) X10*3/uL [place] # (Auto) (0.1-1.2) X10*3/uL Eos # (Auto) (0.0-0.4) X10*3/uL Baso # (Auto) (0.0-0.2) X10*3/uL Abs Immat Gran (auto) (0.00-0.03) X10*3/uL Absolute Neuts (auto) (2.0-8.3) x10*3/uL Absolute Nucleated RBC (0.0-0.012) X10*3/uL Nucleated RBC % (auto) (0.0-0.2) /100WBC Smear Tech's Comments Sodium (135-145) mmol/L Potassium (3.3-5.1) mmol/L Chloride (96-108) mmol/L Carbon Dioxide (22-29) mmol/L Anion Gap (12-20) BUN (9-16) mg/dL Creatinine (0.5-1.4) mg/dL Estim Creat Clear Calc Estimated GFR Random Glucose (60-115) mg/dL Lactic Acid 1.0 (0.5-2.0) mmol/L Calcium (8.4-10.2) mg/dL Magnesium (1.6-2.6) mg/dL Total Bilirubin (0.0-1.0) mg/dL Direct Bilirubin (0.0-0.5) mg/dL AST (5-31) U/L ALT (0-31) U/L Alkaline Phosphatase (39-117) U/L Total Protein (6.5-8.0) g/dL Albumin (3.5-5.0) g/dL Lipase (8-78) U/L Blood Type Antibody Screen Discharge Plan Discharge Clinical Impression: Acute pelvic inflammatory disease (PID) Prescriptions: No Action cephalexin [Keflex] 500 mg capsule 500 mg PO QID Qty: 20 RF: 0 cephalexin [Keflex] 500 mg capsule 500 mg PO Q6H 3 Days Qty: 12 RF: 0 phenazopyridine [Pyridium] 200 mg tablet 200 mg PO TID PRN (Reason: pain) Qty: 10 RF: 0 metoclopramide HCl [Reglan] 10 mg tablet 10 mg PO Q6H PRN (Reason: nausea and vomiting) Qty: 14 RF: 0 medroxyprogesterone [Provera] 10 mg tablet 10 mg PO DAILY 21 Days Qty: 21 RF: 0
[2021-05-04] MEDS: Acetaminophen 325 MG TABLET 650 MG PO (15:19)
[2021-05-04] MEDS: 0.9 % Sodium Chloride 1,000 ML 999 ML IVCONT (15:19)
[2021-05-04] MEDS: ondansetron HCL 4 MG/2 ML VIAL IVPUSH (15:19)
[2021-05-04 15:23] LABS: Basophils Percent Auto 0.2 % (0-2); Eosinophils Percent Auto 0.2 % (0-4); Hematocrit 26.6 % (37.0-47.0); Hemoglobin 8.2 g/dl (12.0-16.0); Imm Gran Abs Auto 0.19 X10*3/uL (0.00-0.03); Imm Gran Pct Auto 0.9 % (0.0-0.4); Lymphocytes Absolute Auto 0.7 X10*3/uL (1.2-4.9); Lymphocytes Percent Auto 3.5 % (20-40); MANUAL DIFF FLAG SCAN; Mean Corpuscular HGB Conc 30.8 g/dl (31.0-35.0); Mean Corpuscular Hemoglobin 22.9 pg (27.0-33.0); Mean Corpuscular Volume 74.3 fL (80.0-98.0); Mean Platelet Volume 10.7 fL (9.4-12.3); Neutrophils Absolute Auto 18.62 x10*3/uL (2.0-8.3); Neutrophils Percent Auto 90.2 % (45-73); Platelet Count 362 X10*3/uL (160-400); Red Blood Count 3.58 X10*6/uL (4.20-5.50); Red Cell Distribution Width 20.8 % (11.0-16.0); SCAN SMEAR FLAG 1; White Blood Count 20.6 X10*3/uL (4.8-10.8)
[2021-05-04 15:45] LABS: SLIDE REVIEW VERIFIED
[2021-05-04] MEDS: fentaNYL citrate/PF 100 MCG/2 ML VIAL 25 MCG IVPUSH ×2 (15:58→16:58)
[2021-05-04 16:30] LABS: Alanine Aminotransferase 14 U/L (0-31); Alkaline Phosphatase 73 U/L (39-117); Anion Gap 12 (12-20); Aspartate Amino Transferase 16 U/L (5-31); Bilirubin Direct 0.2 mg/dL (0.0-0.5); Bilirubin Total 0.5 mg/dL (0.0-1.0); Blood Urea Nitrogen 8 mg/dL (9-16); Calcium 9.1 mg/dL (8.4-10.2); Carbon Dioxide 21 mmol/L (22-29); Chloride 106 mmol/L (96-108); Creatinine Clr Calc Pharmacy 86.2; Estimated Glomerular Filt Rate > 60; Glucose Random 101 mg/dL (60-115); Lipase 10 U/L (8-78); Magnesium 1.8 mg/dL (1.6-2.6); Potassium 3.7 mmol/L (3.3-5.1); Sodium 135 mmol/L (135-145)
[2021-05-04] MEDS: Ketorolac Tromethamine 15 MG/ML VIAL IVPUSH ×2 (16:42→19:58)
[2021-05-04] MEDS: cefTRIAXone sodium 1 GM in 0.9 % Sodium Chloride 50 ML IV (16:43)
[2021-05-04] MEDS: 0.9 % Sodium Chloride 1,000 ML 999 ML IV ×2 (16:44→17:53)
[2021-05-04] MEDS: Doxycycline Hyclate 100 MG in 0.9 % Sodium Chloride 250 ML 166.67 MG IV (17:04)
[2021-05-04 17:25] LABS: COVID-19 Test Negative (Negative)
[2021-05-04 17:47] LABS: HCG Quantitative < 2 mIU/mL
[2021-05-04] MEDS: Morphine Sulfate 4 MG/ML CARTRIDGE IVPUSH (17:52)
--- NOTE | 2021-05-04 18:11 | PHA.MEDREC ---
Pharmacy Consult ? Medication Reconciliation Pharmacy has completed the medication reconciliation. There are no remarkable issues for provider's attention. Adrianne Cuevas, DavidD
[2021-05-04] MEDS: iohexoL 350 MG/ML 100 ML INFUS..BTL IV (18:21)
--- NOTE | 2021-05-04 19:47 | PC.NURSE ---
RN assumed care at 1900. Pt alert and oriented x4, calm and cooperative. Pt states 8/10 pelvic pain at this time, PA aware. Pt states vaginal bleeding persists. Pt denies N/V. IV intact. Low grade temp 100.5 at this time, PA aware meds to be given, BP 96/50, Pa aware. Pt asking for crackers, educated on not being allowed to eat food at this time. Pt resting in stretcher waiting for ultrasound results to come back. Will continue to monitor.
[2021-05-04] MEDS: Acetaminophen 325 MG TABLET 975 MG PO (19:58)
[2021-05-04 20:22] LABS: MANUAL DIFF FLAG NO
[2021-05-04 20:23] LABS: Basophils Percent Auto 0.2 % (0-2); Eosinophils Percent Auto 0.1 % (0-4); Hematocrit 22.5 % (37.0-47.0); Imm Gran Abs Auto 0.19 X10*3/uL (0.00-0.03); Imm Gran Pct Auto 1.1 % (0.0-0.4); Lymphocytes Absolute Auto 1.3 X10*3/uL (1.2-4.9); Lymphocytes Percent Auto 7.4 % (20-40); Mean Corpuscular HGB Conc 31.1 g/dl (31.0-35.0); Mean Corpuscular Hemoglobin 23.2 pg (27.0-33.0); Mean Corpuscular Volume 74.5 fL (80.0-98.0); Mean Platelet Volume 10.5 fL (9.4-12.3); Monocytes Percent Auto 5.4 % (2-11); Neutrophils Absolute Auto 15.49 x10*3/uL (2.0-8.3); Neutrophils Percent Auto 85.8 % (45-73); Platelet Count 304 X10*3/uL (160-400); Red Blood Count 3.02 X10*6/uL (4.20-5.50); Red Cell Distribution Width 20.8 % (11.0-16.0)
[2021-05-04] MEDS: metroNIDAZOLE 500 MG TABLET PO (20:40)
--- NOTE | 2021-05-04 22:59 | PM.IMHP ---
History of Present Illness Date of Service: 05/04/21 Chief Complaint: abdominal pain 20-year-old female with no significant past medical history presents to the hospital with complaints of significant abdominal pain. Pain is diffuse, constant, began few nights ago worsened last night,10/10, radiating to the back, worsened with movement, relieved with warm compress, associated with significant bleeding from the vagina, has had significant vaginal discharge, she is sexually active with 1 partner but uses condoms apparently. Denies any nausea no vomiting, no diarrhea or constipation, no chest pain, no shortness of breath, no headache or change in vision, no urinary symptoms and no lower extremity edema. On arrival to the ED patient found to have a temperature of 100.6?, with a blood pressure of 97/47, Labs are significant for WBC count of 18.0, hemoglobin that was initially 8.2 but dropped to 7 after IV fluid. Her baseline is around 8, labs otherwise unremarkable, Abdominal pelvic CT shows no abdominal abnormalities, fluid and hypertrophy of the endometrial canal, pelvic ultrasound showed no significant abnormal study Patient's case was discussed with OB Gyne, will be treated for PID, started on IV antibiotics, 1 unit of PRBC ordered in the ED and cultures collected and will be admitted for further management Review of Systems Review of Systems: Yes all other systems are reviewed and are negative [facility] Medical History (Updated 05/05/21 @ 05:42 by Herb Huerta MD) Congenital heart disease No known health problems Pertinent family history: No pertinent history Surgical History (Updated 05/05/21 @ 05:41 by Herb Huerta MD) History of heart surgery Social History Alcohol intake: never Patient Tobacco Use Status: Never used Tobacco Use of substances other than those prescribed or required for medical reasons: No Advance Directives: No Meds Allergies Allergy/AdvReac Type Severity Reaction Status Date / Time No Known Allergies Allergy Verified 07/20/20 11:46 Active Medications: Current Medications Pharmacy Consult (Consult Rx Perform Med Rec) 1 each MISCELLANE ONCE PRN PRN Reason: Consult order Home Medications Medication Instructions Recorded Confirmed Last Taken Type ibuprofen 200 mg tablet 400 mg PO Q6H PRN 05/04/21 05/04/21 05/04/21 History Physical Exam Vital Signs and Narrative: Vital Signs: Last Vital Signs Temp 99.2 F 11/03/21 22:38 Pulse 77 05/04/21 22:45 Resp 20 05/04/21 22:45 BP 95/57 L 05/04/21 22:38 Pulse Ox 99 05/04/21 21:21 Body Mass Index 18.6 Const: Other: Ill-appearing, appears uncomfortable and in pain General: cooperative Orientation/consciousness: patient oriented x3 Eyes: General: appearance normal, both eyes and all related structures Pupils: Equal, round and reactive pupils present Resp: Effort & Inspection: normal respiratory effort Auscultation: clear to auscultation bilaterally Cardio: Rate: regular rate Rhythm: regular rhythm GI: Other: Diffuse tenderness, no rebound or guarding Palpation (GI): Soft to palpation Auscultation: normal bowel sounds Skin: General skin exam: no rashes or lesions noted Neuro: General: patient oriented x3 Cranial nerves: Yes Equal, round and reactive pupils present Cognition (Neuro): normal cognition Extrem: General: Yes normal to inspection and Yes no pedal edema Results Labs CBC and Chem 7: 05/04/21 20:18 05/04/21 15:12 Labs: Laboratory Results - last 24 hr 05/04/21 05/04/21 05/04/21 15:12 15:12 15:12 MCV 74.3 L MCH 22.9 L MCHC 30.8 L RDW 20.8 H Plt Count 362 MPV 10.7 Immature Gran % (Auto) 0.9 H Neut % (Auto) 90.2 H Lymph % (Auto) 3.5 L [place] % (Auto) 5.0 Eos % (Auto) 0.2 Baso % (Auto) 0.2 Lymph # (Auto) 0.7 L [place] # (Auto) 1.0 Eos # (Auto) 0.0 Baso # (Auto) 0.0 Abs Immat Gran (auto) 0.19 H Absolute Neuts (auto) 18.62 H Absolute Nucleated RBC 0.000 Nucleated RBC % (auto) 0.0 Smear Tech's Comments VERIFIED Anion Gap 12 Estim Creat Clear Calc 86.2 Estimated GFR > 60 Random Glucose 101 Lactic Acid Calcium 9.1 Magnesium 1.8 Total Bilirubin 0.5 Direct Bilirubin 0.2 AST 16 ALT 14 Alkaline Phosphatase 73 Total Protein 7.0 Albumin 4.0 Lipase 10 Beta HCG, Quant < 2 COVID-19 ([facility]) COVID-19 Clin Com Blood Type O Positive Antibody Screen NEGATIVE Crossmatch See Detail 05/04/21 05/04/21 05/04/21 16:06 16:56 20:18 MCV 74.5 L MCH 23.2 L MCHC 31.1 RDW 20.8 H Plt Count 304 MPV 10.5 Immature Gran % (Auto) 1.1 H Neut % (Auto) 85.8 H Lymph % (Auto) 7.4 L [place] % (Auto) 5.4 Eos % (Auto) 0.1 Baso % (Auto) 0.2 Lymph # (Auto) 1.3 [place] # (Auto) 1.0 Eos # (Auto) 0.0 Baso # (Auto) 0.0 Abs Immat Gran (auto) 0.19 H Absolute Neuts (auto) 15.49 H Absolute Nucleated RBC 0.000 Nucleated RBC % (auto) 0.0 Smear Tech's Comments Anion Gap Estim Creat Clear Calc Estimated GFR Random Glucose Lactic Acid 1.0 Calcium Magnesium Total Bilirubin Direct Bilirubin AST ALT Alkaline Phosphatase Total Protein Albumin Lipase Beta HCG, Quant COVID-19 ([facility]) Negative COVID-19 Clin Com See Note Blood Type Antibody Screen Crossmatch Imaging Radiologist's Impressions: Impressions Abdomen/Pelvis CT 05/04/21 15:35 IMPRESSION: No CT explanation for patient's symptoms. There is a fluid and/or hypertrophy of the endometrial canal and prominence of the ovaries probably normal for patient's young age. Doppler Study Ultrasound 05/04/21 19:06 IMPRESSION: Transabdominal study. No suspicious finding. The ovaries are within normal limits. No free fluid or obvious adnexal mass. Pelvis Ultrasound 05/04/21 19:06 IMPRESSION: Transabdominal study. No suspicious finding. The ovaries are within normal limits. No free fluid or obvious adnexal mass. Assessment and Plan (1) Acute pelvic inflammatory disease (PID): Status: Acute (2) Vaginal bleeding: Status: Acute (3) Anemia: Status: Acute (4) Sepsis: Status: Acute 20-year-old female who presents to the hospital with abdominal pain being admitted for management of PID # abdominal pain - likely secondary to b.i.d. - has significant vaginal discharge - started on doxycycline 100 mg b.i.d., as well as ceftriaxone as well as Flagyl - OB Gyne consult - abdominal CT negative for any abdominal pelvic source of the pain - follow cultures # PID - management as above - follow cultures # sepsis - secondary to PID - will obtain UA - IV antibiotic - follow culture - IV fluid # anemia - patient reports significant vaginal bleeding for the past several weeks - denies any melena or bright red blood per rectum, no hematemesis or hematochezia - patient receiving 1 unit of PRBC - follow CBC - OB Gyne on consult DVT prophylaxis: SCDs in the setting of vaginal bleed Quality Stroke Does the patient have a stroke diagnosis?: No VTE Prior VTE?: No VTE Risk Level:: Medical - moderate - high VTE Device Contraindication: Treatment Not Indicated VTE Drug Contraindication: N/A - Med Ordered
[2021-05-04] MEDS: diphenhydrAMINE HCL 50 MG/ML VIAL 25 MG IVPUSH (23:23)
[2021-05-05] VITALS (7 sets, daily range): BP systolic 94–104; BP diastolic 48–59; PULSE 59–67; RESP 15–18; TEMP 36.2–37.1; O2SAT 96–100; BMI 18.6
--- NOTE | 2021-05-05 | ECG_ITS ---
Test Reason : MEDICAL CLEARENCE Blood Pressure : / mmHG Vent. Rate : 055 BPM Atrial Rate : 055 BPM P-R Int : 126 ms QRS Dur : 082 ms QT Int : 456 ms P-R-T Axes : 006 030 008 degrees QTc Int : 436 ms Sinus bradycardia Low voltage QRS Nonspecific T wave abnormality Abnormal ECG No previous ECGs available Referred By: Herb Huerta Electronically Signed By:DAYNA GUILLORY MD
[2021-05-05] MEDS: Morphine Sulfate 4 MG/ML CARTRIDGE IVPUSH (00:58)
[2021-05-05] MEDS: Lactated Ringers 1,000 ML 100 ML IVCONT ×3 (00:58→20:24)
[2021-05-05 05:55] LABS: CT PCR DETECTED (Not Detect.); NG PCR DETECTED (Not Detect.)
[2021-05-05] MEDS: Lactated Ringers 500 ML 999 ML IV (06:09)
[2021-05-05 06:46] LABS: Appearance Urine HAZY; Color Urine STRAW; Glucose Urine UA NEG (NEG); Leukocyte Esterase Urine 1+ (NEG); Nitrite Urine NEG (NEG); Specific Gravity - Urine 1.015 (1.005-1.025); UACC Culture Trigger YES; Urine Blood 3+ (NEG); Urine Ketones 5 MG/DL (NEG); Urine Protein NEG (NEG-TRACE)
[2021-05-05] MEDS: Doxycycline Hyclate 100 MG in 0.9 % Sodium Chloride 250 ML 166.67 MG IV ×2 (06:47→18:10)
[2021-05-05 06:48] LABS: UPreg QC Valid YES; Urine Pregnancy NEGATIVE (NEGATIVE)
[2021-05-05 06:53] LABS: Bacteria Urine 1+ /LPF; RBC Urine 50-75 /HPF (0); Squamous Epithelial Cell Urine 1+ /LPF
[2021-05-05 07:52] LABS: MANUAL DIFF FLAG NO
[2021-05-05 07:55] LABS: Basophils Absolute Auto 0.1 X10*3/uL (0.0-0.2); Basophils Percent Auto 0.3 % (0-2); Eosinophils Absolute Auto 0.3 X10*3/uL (0.0-0.4); Eosinophils Percent Auto 1.5 % (0-4); Hematocrit 24.2 % (37.0-47.0); Hemoglobin 7.6 g/dl (12.0-16.0); Imm Gran Abs Auto 0.08 X10*3/uL (0.00-0.03); Imm Gran Pct Auto 0.5 % (0.0-0.4); Lymphocytes Absolute Auto 1.4 X10*3/uL (1.2-4.9); Lymphocytes Percent Auto 8.5 % (20-40); Mean Corpuscular HGB Conc 31.4 g/dl (31.0-35.0); Mean Corpuscular Hemoglobin 23.9 pg (27.0-33.0); Mean Corpuscular Volume 76.1 fL (80.0-98.0); Mean Platelet Volume 11.7 fL (9.4-12.3); Monocytes Absolute Auto 1.3 X10*3/uL (0.1-1.2); Neutrophils Absolute Auto 13.12 x10*3/uL (2.0-8.3); Neutrophils Percent Auto 81.2 % (45-73); Platelet Count 292 X10*3/uL (160-400); Red Blood Count 3.18 X10*6/uL (4.20-5.50); Red Cell Distribution Width 20.2 % (11.0-16.0); White Blood Count 16.2 X10*3/uL (4.8-10.8)
[2021-05-05] MEDS: Docusate Sodium 100 MG CAPSULE PO ×2 (08:17→20:15)
[2021-05-05] MEDS: medroxyPROGESTERone Acetate 5 MG TABLET 10 MG PO (08:17)
--- NOTE | 2021-05-05 08:23 | P.CDIC_ITS ---
CDI Concurrent Query Documentation Clarification: PHYSICIAN'S DOCUMENTATION REQUEST Date of Query: 05/05/21 0824 Patient Name: Hugo Mariee Admit Date: 05/04/21 Dear Doctor, A review of the medical record indicates additional documentation may be needed. Please review below and update the documentation accordingly. Clinical Indicators: Risk Factors/Clinical Indicators/Treatments Anemia Patient reports vaginal bleeding past several weeks. PID HGB 7.0 HCT 22.5 Transfuse 1 unit PRBC Follow CBC Based on the above, could you clarify in the Progress Notes which of the following is the most likely type of anemia you are evaluating, treating, and/or monitoring? * Acute blood loss anemia * Acute blood loss anemia with baseline chronic anemia (specify type) * Chronic iron deficiency anemia due to acute blood loss/and/or acute on chronic blood loss * Other ? please specify * Unable to determine Use of terms such as suspected, likely, concern for, or probable (associated with a specific diagnosis that is being evaluated, monitored, or treated as if it exists) are acceptable and can be coded in the inpatient setting, when documented at the time of discharge. Thank you, Karie Puckett [facility], CDIS Extension: [phone] Please use your independent medical judgment in providing your response. THIS QUERY IS PART OF THE PERMANENT MEDICAL RECORD Provider Response: Other Other Diagnosis: Acute blood loss anemia secondary to menorrhagia
--- NOTE | 2021-05-05 08:30 | PM.GYNCN ---
LOG TUMBLER - CN: HPI Data of Consult Consult date: 05/04/21 Requesting Physician: Ash Brown, Consult Narrative Narrative: I was consulted on Galina Andrade who is a 20 year-old female who presented to the emergency room yesterday evening with complaints of significant abdominal pain.? Pain was diffuse, constant, began few days prior to presentation radiating to the back, worsened with movement, relieved with warm compress, is associated with significant vaginal discharge. The patient is sexually active with one partner . In addition, the patient has been having heavy bleeding for the last few weeks, presented emergency room few days ago and was discharged on Provera 10 mg p.o. q.d. since then the bleeding has slowed down significantly .? The patient denies any nausea no vomiting, no diarrhea or constipation, no chest pain, no shortness of breath, no headache or change in vision, no urinary symptoms and no lower extremity edema. In the emergency room, the patient's temperature was 100.6?, with a blood pressure of 97/47, Labs are significant for WBC count of 18.0, hemoglobin that was initially 8.2 but dropped to 7 after IV fluid.? Her baseline is around 8, labs otherwise unremarkable, GC and chlamydia both were positive common Trichomonas come a candidate a and Gradenella are still pending, this morning white count is 16.2 K, H and H is 7.6 and 24[address] shows no abdominal abnormalities, fluid and hypertrophy of the endometrial canal, pelvic ultrasound showed no significant abnormal study The patient received 1 unit of PRBC in the ED and cultures collected and the patient was admitted under the hospitalist service for further management. The following antibiotics were started Ceftriaxone 1 g Q 24 come a doxycycline 100 mg p.o. b.i.d. with Flagyl 500 mg b.i.d. The patient has is feeling better this morning, her pain has improved , last dose of morphine was given at midnight. White count has decreased from 20 K down to 16.2 K. and her temperature has been normal since 7:45 p.m. when T-max was 100.5 degrees Her vaginal bleeding has been very light common the patient is still taking Provera daily cc:: CC: Ash Brown DO PASTRYCOOK - Review of Systems Review of Systems ROS Unobtainable: All systems reviewed & are unremarkable except as noted in HPI and below Cardiovascular: Denies Palpatations, Loss of consciousness or Chest pain Respiratory: Denies Cough, Wheezing or Shortness of breath Musculoskeletal: Denies Low back pain Gastrointestinal: Denies Heartburn, Constipation, Diarrhea, Nausea or Vomiting Genitourinary: Denies Pain with urination, Burning with urination or Urinary frequency Neurological: Denies Migranes Psychological: Denies Depression OB PMFSH Past Medical History Medical History (Updated 05/05/21 @ 05:42 by Herb Huerta MD) Congenital heart disease No known health problems Surgical History Surgical History (Updated 05/05/21 @ 05:41 by Herb Huerta MD) History of heart surgery Social History Social History Household Members: Family Housing: House Do you presently have visiting nurse or other home services: No Alcohol intake: never Patient Tobacco Use Status: Never used Tobacco service: No Current occupational status: employed Meds Allergies Allergy/AdvReac Type Severity Reaction Status Date / Time No Known Allergies Allergy Verified 07/20/20 11:46 Active Medications: Current Medications Acetaminophen (Acetaminophen 325 Mg Tablet) 650 mg PO Q6H PRN PRN Reason: Pain, Mild (Pain Scale 1-3) Diphenhydramine HCl (Diphenhydramine Hcl 25 Mg Tablet) 25 mg PO Q4H PRN PRN Reason: Itching Docusate Sodium (Docusate Sodium 100 Mg Capsule) 100 mg PO BID [facility] Last Admin: 05/05/21 08:17 Dose: 100 mg Documented by: Doxycycline Hyclate 100 mg/ (Sodium Chloride) 250 mls @ 166.67 mls/hr IV Q12H [facility] Last Infusion: 05/05/21 08:19 Dose: Infused Documented by: Ceftriaxone Sodium 1 gm/ (Sodium Chloride) 50 mls @ 100 mls/hr IV Q24H [facility] Lactated Ringer's (Lr) 1,000 mls @ 100 mls/hr IVCONT .Q10H [facility] Last Admin: 05/05/21 08:17 Dose: 100 mls/hr Documented by: Metronidazole (Flagyl) 500 mg in 100 mls @ 100 mls/hr IV Q12H [facility] Medroxyprogesterone Acetate (Medroxyprogesterone Acetate 5 Mg Tablet) 10 mg PO DAILY [facility] Last Admin: 05/05/21 08:17 Dose: 10 mg Documented by: Morphine Sulfate (Morphine Sulfate 4 Mg/Ml Cartridge) 4 mg IVPUSH Q4H PRN; Protocol PRN Reason: Pain, Severe (Pain Scale 7-10) Last Admin: 05/05/21 00:58 Dose: 4 mg Documented by: Ondansetron HCl (Ondansetron Hcl 4 Mg/2 Ml Vial) 4 mg IVPUSH Q8H PRN PRN Reason: Nausea and Vomiting Pharmacy Consult (Consult Rx Perform Med Rec) 1 each MISCELLANE ONCE PRN PRN Reason: Consult order Sodium Chloride (0.9 % Sodium Chloride Flush 3 Ml Syringe) 3 ml IVFLUSH QSHIFT [facility] Last Admin: 05/05/21 07:59 Dose: Not Given Documented by: Home Medications Medication Instructions Recorded Confirmed Last Taken Type ibuprofen 200 mg tablet 400 mg PO Q6H PRN 05/04/21 05/04/21 05/04/21 History LOG TUMBLER Physical Exam Vitals Vital signs: Temp Pulse Resp BP Pulse Ox 97.2 F 67 18 96/50 L 100 05/05/21 08:00 05/05/21 08:00 05/05/21 08:00 05/05/21 08:00 05/05/21 08:00 Body Mass Index 18.6 Constitutional General Appearance: Healthy appearing, Well-nourished and Well-developed Psychiatric Mood and Affect: active and alert, normal mood and normal affect Skin Appearance: No rashes and No lesions Lungs Respiratory Effort: No intercostal retractions Auscultation: Clear to auscultation Cardiovascular Auscultation: RRR Abdomen Auscultation/Inspection/Palpation: Normal bowel sounds, Soft, Non-distended and Tenderness (Diffuse tenderness common no guarding or rebound) Female Genitalia (Pelvic) Vulva: No lesions Vagina: Nontender Cervix: Cervical motion tenderness Uterus: Tender Adnexa/Parametria: Adnexal Tenderness: Bilateral Additional Comments: Since yesterday the patient has been afebrile come a T-max was at forty five p.m. yesterday hundred point five since then temperature has been normal, last request for analgesics were admit night common patient's feeling better LOG TUMBLER - Results Labs CBC & Chem 7: 05/05/21 07:32 05/04/21 15:12 Labs: Short CBC 05/04/21 05/04/21 05/05/21 Range/Units 15:12 20:18 07:32 WBC 20.6 H 18.0 H 16.2 H (4.8-10.8) X10*3/uL Hgb 8.2 L 7.0 L* 7.6 L (12.0-16.0) g/dl Hct 26.6 L 22.5 L 24.2 L (37.0-47.0) % Plt Count 362 304 292 (160-400) X10*3/uL BMP 05/04/21 15:12 Sodium 135 Potassium 3.7 Chloride 106 Carbon Dioxide 21 L BUN 8 L Creatinine 0.76 Calcium 9.1 Liver Function 05/04/21 Range/Units 15:12 Total Bilirubin 0.5 (0.0-1.0) mg/dL Direct Bilirubin 0.2 (0.0-0.5) mg/dL AST 16 (5-31) U/L ALT 14 (0-31) U/L Alkaline Phosphatase 73 (39-117) U/L Albumin 4.0 (3.5-5.0) g/dL Urine 05/05/21 05/05/21 Range/Units 06:38 06:39 Urine Color STRAW Urine Appearance HAZY Urine pH 6.0 (5.0-8.0) Ur Specific [place] 1.015 (1.005-1.025) Urine Protein NEG (NEG-TRACE) MG/DL Urine Glucose (UA) NEG (NEG) MG/DL Urine Test NEGATIVE (NEGATIVE) Antibody Screen Antibody Screen NEGATIVE 05/04/21 15:12 Assessment and Plan (1) Acute pelvic inflammatory disease (PID): Status: Acute Will treat with the CDC recommended parenteral regimen for PID with ceftriaxone 1 g Q 24, doxycycline 100 mg p.o. b.i.d. and Flagyl 500 mg p.o. b.i.d. once the patient improves clinically and terms of pain pain abdominal tenderness on exam and continues to stay afebrile for 48 hours, the patient can be discharged on the following p.o. regimen: doxycycline 100 mg p.o. b.i.d. with Flagyl 500 mg p.o. b.i.d. for 14 days, to follow-up in the office for a test of cure in 2 weeks and at 3 months. Instructed the patient to inform her sexual partner (s), to be screened by his/their PCP and treated for GC and chlamydia, and not to have intercourse at least 1 week after treatment with antibiotics course is completed by both partners. Will order HIV, RPR, hepatitis-B surface antigen and hepatitis-C antibody (2) Vaginal bleeding: Status: Acute Will keep Provera 10 mg p.o. q.d., iron sulfate 325 mg p.o. t.i.d., and follow-up in the office in 1-2 weeks
--- NOTE | 2021-05-05 08:38 | MHC.CM.PN ---
CM met with Patient at bedside. Patient lives in a house with her Mother and she is functionally independent. Patient's goal is to return home/no services and CM has initiated and will follow for dc planning. PCP is DR. Galina Andrade. 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
[2021-05-05] MEDS: ondansetron HCL 4 MG/2 ML VIAL IVPUSH (08:42)
[2021-05-05] MEDS: metroNIDAZOLE/NS 500 MG/100 ML PIGGYBACK 100 MG IV ×2 (08:42→20:14)
[2021-05-05] MEDS: diphenhydrAMINE HCL 25 MG TABLET PO (08:42)
[2021-05-05 08:53] LABS: Anion Gap 9 (12-20); Blood Urea Nitrogen 5 mg/dL (9-16); Calcium 7.3 mg/dL (8.4-10.2); Carbon Dioxide 22 mmol/L (22-29); Chloride 111 mmol/L (96-108); Creatinine Clr Calc Pharmacy 107.4; Estimated Glomerular Filt Rate > 60; Glucose Random 78 mg/dL (60-115); Potassium 3.9 mmol/L (3.3-5.1); Sodium 138 mmol/L (135-145)
[2021-05-05 10:04] LABS: HBsAGNum1 0.19 S/CO (0.00-0.99); HIV AB/AG Nonreactive (Nonreactive); HIV Num 1 0.11 S/CO (0.00-0.99); Hepatitis B Surface Antigen Negative (Negative)
[2021-05-05 10:08] LABS: ~HepC Num1 0.22 S/CO (0.00-0.79); ~Hepatitis C Antibody Nonreactive (Nonreactive)
[2021-05-05 11:05] LABS: BV Int Neg Control Negative (Negative); BV Int Pos Control Positive (Positive)
--- NOTE | 2021-05-05 16:11 | HO.PM.IMPN ---
Subjective Subjective Date of Service: 05/05/21 Interval History: Resting comfortable is a morning no pain. Remains afebrile Review of Systems Denies chest pain excellent denies shortness of breath Physical Exam Vital Signs: Vital Signs: Last Vital Signs Temp 98.4 F 05/05/21 15:43 Pulse 61 05/05/21 15:43 Resp 16 05/05/21 15:43 BP 100/59 L 05/05/21 15:43 Pulse Ox 98 05/05/21 15:43 Body Mass Index 18.6 Const: Other: Comfortable, no acute distress Resp: Other: Clear to auscultation bilaterally no rales rhonchi or wheezes Cardio: Other: No S4; positive S1-S2; no S3 murmurs or gallops GI: Other: Soft nontender nondistended with normoactive bowel sounds Neuro: Other: Cranial nerves 2-12 grossly intact as tested. Motor is 5/5 all extremities. Sensation intact. Cognition is appropriate Extrem: Other: No edema bilaterally Objective Data Active Medications Acetaminophen (Acetaminophen 325 Mg Tablet) 650 mg PO Q6H PRN PRN Reason: Pain, Mild (Pain Scale 1-3) Diphenhydramine HCl (Diphenhydramine Hcl 25 Mg Tablet) 25 mg PO Q4H PRN PRN Reason: Itching Last Admin: 05/05/21 08:42 Dose: 25 mg Documented by: YOLANDE Docusate Sodium (Docusate Sodium 100 Mg Capsule) 100 mg PO BID [facility] Last Admin: 05/05/21 08:17 Dose: 100 mg Documented by: YOLANDE Doxycycline Hyclate 100 mg/ (Sodium Chloride) 250 mls @ 166.67 mls/hr IV Q12H [facility] Last Infusion: 05/05/21 08:19 Dose: 0 mls/hr Documented by: YOLANDE Ceftriaxone Sodium 1 gm/ (Sodium Chloride) 50 mls @ 100 mls/hr IV Q24H [facility] Lactated Ringer's (Lr) 1,000 mls @ 100 mls/hr IVCONT .Q10H [facility] Last Admin: 05/05/21 08:17 Dose: 100 mls/hr Documented by: YOLANDE Metronidazole (Flagyl) 500 mg in 100 mls @ 100 mls/hr IV Q12H [facility] Last Infusion: 05/05/21 09:58 Dose: 0 mls/hr Documented by: YOLANDE Medroxyprogesterone Acetate (Medroxyprogesterone Acetate 5 Mg Tablet) 10 mg PO DAILY [facility] Last Admin: 05/05/21 08:17 Dose: 10 mg Documented by: YOLANDE Morphine Sulfate (Morphine Sulfate 4 Mg/Ml Cartridge) 4 mg IVPUSH Q4H PRN; Protocol PRN Reason: Pain, Severe (Pain Scale 7-10) Last Admin: 05/05/21 00:58 Dose: 4 mg Documented by: VICENTA Ondansetron HCl (Ondansetron Hcl 4 Mg/2 Ml Vial) 4 mg IVPUSH Q8H PRN PRN Reason: Nausea and Vomiting Last Admin: 05/05/21 08:42 Dose: 4 mg Documented by: YOLANDE Pharmacy Consult (Consult Rx Perform Med Rec) 1 each MISCELLANE ONCE PRN PRN Reason: Consult order Sodium Chloride (0.9 % Sodium Chloride Flush 3 Ml Syringe) 3 ml IVFLUSH QSHIFT [facility] Last Admin: 05/05/21 07:59 Dose: Not Given Documented by: YOLANDE Non-Admin Reason: IV Running Labs CBC & Chem 7: 05/05/21 07:32 05/05/21 07:32 Labs: Laboratory Results - last 24 hr 05/04/21 05/04/21 05/04/21 15:12 15:12 16:06 MCV MCH MCHC RDW Plt Count MPV Immature Gran % (Auto) Neut % (Auto) Lymph % (Auto) [place] % (Auto) Eos % (Auto) Baso % (Auto) Lymph # (Auto) [place] # (Auto) Eos # (Auto) Baso # (Auto) Abs Immat Gran (auto) Absolute Neuts (auto) Absolute Nucleated RBC Nucleated RBC % (auto) Anion Gap 12 Estim Creat Clear Calc 86.2 Estimated GFR > 60 Random Glucose 101 Lactic Acid 1.0 Calcium 9.1 Magnesium 1.8 Total Bilirubin 0.5 Direct Bilirubin 0.2 AST 16 ALT 14 Alkaline Phosphatase 73 Total Protein 7.0 Albumin 4.0 Lipase 10 Beta HCG, Quant < 2 Urine Color Urine Appearance Urine pH Ur Specific [place] Urine Protein Urine Glucose (UA) Urine Ketones Urine Blood Urine Nitrite Ur Leukocyte Esterase Urine RBC Urine WBC Ur Squamous Epith Cells Urine Bacteria Urine Test Lyssa species DNA Chlam trachomat DNA PCR COVID-19 ([facility]) COVID-19 Clin Com [place] DNA Probe Hep Bs Antigen Hepatitis C Ab (EIA) HIV 1&2 Ab/P24 Ag 4thGn N.gonorrhoeae DNA (PCR) Trichomonas DNA Probe Blood Type O Positive Antibody Screen NEGATIVE Crossmatch See Detail 05/04/21 05/04/21 05/04/21 16:33 16:33 16:56 MCV MCH MCHC RDW Plt Count MPV Immature Gran % (Auto) Neut % (Auto) Lymph % (Auto) [place] % (Auto) Eos % (Auto) Baso % (Auto) Lymph # (Auto) [place] # (Auto) Eos # (Auto) Baso # (Auto) Abs Immat Gran (auto) Absolute Neuts (auto) Absolute Nucleated RBC Nucleated RBC % (auto) Anion Gap Estim Creat Clear Calc Estimated GFR Random Glucose Lactic Acid Calcium Magnesium Total Bilirubin Direct Bilirubin AST ALT Alkaline Phosphatase Total Protein Albumin Lipase Beta HCG, Quant Urine Color Urine Appearance Urine pH Ur Specific [place] Urine Protein Urine Glucose (UA) Urine Ketones Urine Blood Urine Nitrite Ur Leukocyte Esterase Urine RBC Urine WBC Ur Squamous Epith Cells Urine Bacteria Urine Test Lyssa species DNA Negative Chlam trachomat DNA PCR DETECTED A COVID-19 ([facility]) Negative COVID-19 Clin Com See Note [place] DNA Probe Negative Hep Bs Antigen Hepatitis C Ab (EIA) HIV 1&2 Ab/P24 Ag 4thGn N.gonorrhoeae DNA (PCR) DETECTED A Trichomonas DNA Probe Negative Blood Type Antibody Screen Crossmatch 05/04/21 05/05/21 05/05/21 20:18 06:38 06:39 MCV 74.5 L MCH 23.2 L MCHC 31.1 RDW 20.8 H Plt Count 304 MPV 10.5 Immature Gran % (Auto) 1.1 H Neut % (Auto) 85.8 H Lymph % (Auto) 7.4 L [place] % (Auto) 5.4 Eos % (Auto) 0.1 Baso % (Auto) 0.2 Lymph # (Auto) 1.3 [place] # (Auto) 1.0 Eos # (Auto) 0.0 Baso # (Auto) 0.0 Abs Immat Gran (auto) 0.19 H Absolute Neuts (auto) 15.49 H Absolute Nucleated RBC 0.000 Nucleated RBC % (auto) 0.0 Anion Gap Estim Creat Clear Calc Estimated GFR Random Glucose Lactic Acid Calcium Magnesium Total Bilirubin Direct Bilirubin AST ALT Alkaline Phosphatase Total Protein Albumin Lipase Beta HCG, Quant Urine Color STRAW Urine Appearance HAZY Urine pH 6.0 Ur Specific [place] 1.015 Urine Protein NEG Urine Glucose (UA) NEG Urine Ketones 5 Urine Blood 3+ H Urine Nitrite NEG Ur Leukocyte Esterase 1+ H Urine RBC 50-75 H Urine WBC 1-4 Ur Squamous Epith Cells 1+ Urine Bacteria 1+ Urine Test NEGATIVE Lyssa species DNA Chlam trachomat DNA PCR COVID-19 ([facility]) COVID-19 Clin Com [place] DNA Probe Hep Bs Antigen Hepatitis C Ab (EIA) HIV 1&2 Ab/P24 Ag 4thGn N.gonorrhoeae DNA (PCR) Trichomonas DNA Probe Blood Type Antibody Screen Crossmatch 05/05/21 05/05/21 05/05/21 07:32 07:32 09:02 MCV 76.1 L MCH 23.9 L MCHC 31.4 RDW 20.2 H Plt Count 292 MPV 11.7 Immature Gran % (Auto) 0.5 H Neut % (Auto) 81.2 H Lymph % (Auto) 8.5 L [place] % (Auto) 8.0 Eos % (Auto) 1.5 Baso % (Auto) 0.3 Lymph # (Auto) 1.4 [place] # (Auto) 1.3 H Eos # (Auto) 0.3 Baso # (Auto) 0.1 Abs Immat Gran (auto) 0.08 H Absolute Neuts (auto) 13.12 H Absolute Nucleated RBC 0.000 Nucleated RBC % (auto) 0.0 Anion Gap 9 L Estim Creat Clear Calc 107.4 Estimated GFR > 60 Random Glucose 78 Lactic Acid Calcium 7.3 L D Magnesium Total Bilirubin Direct Bilirubin AST ALT Alkaline Phosphatase Total Protein Albumin Lipase Beta HCG, Quant Urine Color Urine Appearance Urine pH Ur Specific [place] Urine Protein Urine Glucose (UA) Urine Ketones Urine Blood Urine Nitrite Ur Leukocyte Esterase Urine RBC Urine WBC Ur Squamous Epith Cells Urine Bacteria Urine Test Lyssa species DNA Chlam trachomat DNA PCR COVID-19 ([facility]) COVID-19 Clin Com [place] DNA Probe Hep Bs Antigen Negative Hepatitis C Ab (EIA) HIV 1&2 Ab/P24 Ag 4thGn Nonreactive N.gonorrhoeae DNA (PCR) Trichomonas DNA Probe Blood Type Antibody Screen Crossmatch 05/05/21 09:02 MCV MCH MCHC RDW Plt Count MPV Immature Gran % (Auto) Neut % (Auto) Lymph % (Auto) [place] % (Auto) Eos % (Auto) Baso % (Auto) Lymph # (Auto) [place] # (Auto) Eos # (Auto) Baso # (Auto) Abs Immat Gran (auto) Absolute Neuts (auto) Absolute Nucleated RBC Nucleated RBC % (auto) Anion Gap Estim Creat Clear Calc Estimated GFR Random Glucose Lactic Acid Calcium Magnesium Total Bilirubin Direct Bilirubin AST ALT Alkaline Phosphatase Total Protein Albumin Lipase Beta HCG, Quant Urine Color Urine Appearance Urine pH Ur Specific [place] Urine Protein Urine Glucose (UA) Urine Ketones Urine Blood Urine Nitrite Ur Leukocyte Esterase Urine RBC Urine WBC Ur Squamous Epith Cells Urine Bacteria Urine Test Lyssa species DNA Chlam trachomat DNA PCR COVID-19 ([facility]) COVID-19 Clin Com [place] DNA Probe Hep Bs Antigen Hepatitis C Ab (EIA) Nonreactive HIV 1&2 Ab/P24 Ag 4thGn N.gonorrhoeae DNA (PCR) Trichomonas DNA Probe Blood Type Antibody Screen Crossmatch Microbiology Microbiology Results: Microbiology 05/04/21 16:33 Trichomonas Preparation - Final Vaginal Assessment and Plan (1) Acute pelvic inflammatory disease (PID): Status: Acute (2) Vaginal bleeding: Status: Acute Assessment and Plan: 20 year-old female who presented to the emergency room with complaints of significant abdominal pain.? Pain was diffuse, constant, began few days prior to presentation radiating to the back, worsened with movement, relieved with warm compress, is associated with significant vaginal discharge.? The patient is sexually active with one partner . Internal exam consistent with PID 1. PID Seen by aws architect Continue IV ceftriaxone 1 g Q 24 hours; doxycycline 100 mg q.12 hours and metronidazole 500 mg b.i.d. Afebrile times 24 hours; if remains afebrile times 48 hours will DC home on oral therapies to follow up with aws architect as outpatient 2.Anemia Secondary to vaginal bleeding. Received 1 unit of packed red cells; continue Provera 10 mg p.o. daily, iron sulfate 325 mg t.i.d. Will add vitamin-C 500 b.i.d. DVT prophylaxis: SCDs in the setting of vaginal bleed Quality Stroke Does the patient have a stroke diagnosis?: No VTE Prior VTE?: No VTE Risk Level:: Medical - moderate - high VTE Device Contraindication: Treatment Not Indicated VTE Drug Contraindication: N/A - Med Ordered
[2021-05-05] MEDS: cefTRIAXone sodium 1 GM in 0.9 % Sodium Chloride 50 ML IV (17:27)
[2021-05-05] MEDS: 0.9 % Sodium Chloride Flush 3 ML SYRINGE IVFLUSH (20:14)
[2021-05-06 03:46] VITALS: BP 103/56; PULSE 65; RESP 15; TEMP 36.8; O2SAT 99
[2021-05-06 03:57] LABS: Syphilis Screen Nonreactive (Nonreactive)
[2021-05-06] MEDS: Doxycycline Hyclate 100 MG in 0.9 % Sodium Chloride 250 ML 166.67 MG IV (06:02)
--- NOTE | 2021-05-06 06:10 | PC.NURSE ---
VSS, afebrile. Pt slept intermittently throughout night-up to use bathroom frequently. Pt continues with vaginal bleeding but denies cramps/pain. IV fluids and IV antibiotics as ordered. Plan-Possible D/C home today. Will continue to monitor.
[2021-05-06 06:21] LABS: MANUAL DIFF FLAG NO
[2021-05-06 06:43] LABS: Basophils Percent Auto 0.4 % (0-2); Eosinophils Absolute Auto 0.4 X10*3/uL (0.0-0.4); Eosinophils Percent Auto 4.3 % (0-4); Hematocrit 25.2 % (37.0-47.0); Hemoglobin 7.8 g/dl (12.0-16.0); Imm Gran Abs Auto 0.04 X10*3/uL (0.00-0.03); Imm Gran Pct Auto 0.4 % (0.0-0.4); Lymphocytes Absolute Auto 1.7 X10*3/uL (1.2-4.9); Lymphocytes Percent Auto 18.9 % (20-40); Mean Corpuscular Hemoglobin 23.5 pg (27.0-33.0); Mean Corpuscular Volume 75.9 fL (80.0-98.0); Mean Platelet Volume 12.3 fL (9.4-12.3); Monocytes Absolute Auto 0.8 X10*3/uL (0.1-1.2); Monocytes Percent Auto 8.7 % (2-11); Neutrophils Absolute Auto 6.1 x10*3/uL (2.0-8.3); Neutrophils Percent Auto 67.3 % (45-73); Platelet Count 336 X10*3/uL (160-400); Red Blood Count 3.32 X10*6/uL (4.20-5.50); Red Cell Distribution Width 20.7 % (11.0-16.0); White Blood Count 9.1 X10*3/uL (4.8-10.8)
[2021-05-06 07:33] VITALS: BP 105/57; PULSE 68; RESP 15; TEMP 37.3; O2SAT 100
[2021-05-06] MEDS: 0.9 % Sodium Chloride Flush 3 ML SYRINGE IVFLUSH (07:36)
[2021-05-06] MEDS: Lactated Ringers 1,000 ML 100 ML IVCONT (07:36)
[2021-05-06] MEDS: diphenhydrAMINE HCL 25 MG TABLET PO (08:32)
[2021-05-06] MEDS: metroNIDAZOLE/NS 500 MG/100 ML PIGGYBACK 100 MG IV (08:32)
[2021-05-06] MEDS: medroxyPROGESTERone Acetate 5 MG TABLET 10 MG PO (08:32)
[2021-05-06] MEDS: Docusate Sodium 100 MG CAPSULE PO (08:32)
--- NOTE | 2021-05-06 11:31 | MHC.CM.PN ---
Per ROUNDS discussion, Patient will be medically cleared for dc to home today, no services.
--- NOTE | 2021-05-06 12:05 | PM.DS ---
DS: Providers Provider Date of Service: 05/06/21 Date of admission: 05/04/21 22:59 Primary care physician: Galina Andrade Consults: 05/04/21 20:28 Consult to Obstetrics / Gynecology Stat Consulting Provider: Roge Pringle Reason for consultation: pid 05/04/21 23:13 Consult to Obstetrics / Gynecology Routine Consulting Provider: Roge Pringle Reason for consultation: significant vaginal bleed, PID Has provider been notified: Yes DS: Diagnosis Discharge Diagnosis (1) Acute pelvic inflammatory disease (PID): Status: Acute (2) Vaginal bleeding: Status: Acute DS: Summary Status at Discharge Cognitive/behavioral status at discharge: 20-year-old female with no significant past medical history presents to the hospital with complaints of significant abdominal pain.? Pain is diffuse, constant, began few nights ago worsened last night,04/10, radiating to the back, worsened with movement, relieved with warm compress, associated with significant bleeding from the vagina, has had significant vaginal discharge, she is sexually active with 1 partner but uses condoms apparently.? Denies any nausea no vomiting, no diarrhea or constipation, no chest pain, no shortness of breath, no headache or change in vision, no urinary symptoms and no lower extremity edema. Hospital course Seen in consultation by Dr. Pringle; continued on IV doxycycline/ceftriaxone/Flagyl. At this point she has been 48 hours afebrile and can be discharged home according to his recommendations. She will be discharged home on oral doxycycline b.i.d. for 14 days along with Flagyl 500 t.i.d. for 14 days. She has been instructed to to complete therapies and to inform her partner of the need to be tested/treated. No relation so both parties are treated. She can follow-up with cloth winder as scheduled and her PCP Time Spent with Patient Time attestation: Total time spent providing and/or coordinating discharge services: Discharge coordination time: Greater than 30 minutes Quality: Stroke Does the patient have a stroke diagnosis?: No Physical Exam Vital Signs: Vital Signs: Last Vital Signs Temp 99.1 F 05/06/21 07:33 Pulse 68 05/06/21 07:33 Resp 15 05/06/21 07:33 BP 105/57 L 05/06/21 07:33 Pulse Ox 100 05/06/21 07:33 Body Mass Index 18.6 Const: Other: Comfortable, no acute distress Resp: Other: Clear to auscultation bilaterally no rales rhonchi or wheezes Cardio: Other: No S4; positive S1-S2; no S3 murmurs or gallops GI: Other: Soft nontender nondistended with normoactive bowel sounds Neuro: Other: Cranial nerves 2-12 grossly intact as tested. Motor is 5/5 all extremities. Sensation intact. Cognition is appropriate Extrem: Other: No edema bilaterally DS: Data Data Completed and Pending Labs on day of discharge: Laboratory Results - last 24 hr 05/05/21 05/06/21 09:02 05:56 WBC 9.1 RBC 3.32 L Hgb 7.8 L Hct 25.2 L MCV 75.9 L MCH 23.5 L MCHC 31.0 RDW 20.7 H Plt Count 336 MPV 12.3 Immature Gran % (Auto) 0.4 Neut % (Auto) 67.3 Lymph % (Auto) 18.9 L [place] % (Auto) 8.7 Eos % (Auto) 4.3 H Baso % (Auto) 0.4 Lymph # (Auto) 1.7 [place] # (Auto) 0.8 Eos # (Auto) 0.4 Baso # (Auto) 0.0 Abs Immat Gran (auto) 0.04 H Absolute Neuts (auto) 6.1 Absolute Nucleated RBC 0.000 Nucleated RBC % (auto) 0.0 T.pallidum Ab (EIA) Nonreactive Preliminary micro results at discharge 05/04/21 16:19 Blood Culture - Preliminary Blood - Venous No growth after 24 hours. 05/04/21 16:06 Blood Culture - Preliminary Blood - Venous No growth after 24 hours. Discharge Plan Discharge Patient Disposition: Home, Self-Care Discharge Diagnosis: PID Referrals: Galina Andrade [Primary Care Provider] - 1 Week Discharge Medications: New doxycycline hyclate 100 mg capsule 100 mg PO BID 14 Days Qty: 28 RF: 0 metronidazole 500 mg tablet 500 mg PO TID Qty: 42 RF: 0 Continued medroxyprogesterone [Provera] 10 mg tablet 10 mg PO DAILY 21 Days Qty: 21 RF: 0 Discontinued ibuprofen 200 mg Tablet 400 mg PO Q6H PRN (Reason: Pain) RF: 0 Discharge Orders: Discharge Order (Routine); Ordered 05/06/21 Ordered By: Ash Brown Diet: advance to usual diet Activity on Discharge: As tolerated Stand Alone Forms: Patient Portal Discharge page Care Plan Goals: Informed partner of results and inform they may be treated Health Concerns: No sexual relations until 1 week after completion of antibiotics Plan of Treatment: Follow-up with OBGYN as scheduled Assessment: Complete antibiotics as ordered. No alcohol with Flagyl
--- NOTE | 2021-05-17 05:30 | P.CDIR_ITS ---
Retrospective Query PHYSICIAN'S DOCUMENTATION REQUEST Date of Query: 05/17/21 0531 Patient Name: Hugo Mariee Admit Date: 05/04/21 Dear Doctor, A review of the medical record indicates additional documentation may be needed. Please review below and update the documentation accordingly. Clinical Indicators: The purpose of this query is not to question medical judgment, but to ensure the accuracy of the conditions reported for your patient. Risk Factors/Clinical Indicators/Treatments H&P: Assessment/plan: Sepsis secondary to PID. Obtain UA Follow culture/IV fluids ED: WBC 20.6 Temp 100.6 RR 20 BP 97/47 Ill appearing IV Antibiotics, 1 unit PRBC for vaginal bleeding Ceftriaxone, Doxycycline, Flagyl, wbc decreased from 20K to 16.2K Temperature down to 100.5 Please clarify the documentation of [include the diagnosis]: SEPSIS: * [ ] remains a known or suspected condition for this patient and is further supported by (include additional documentation in the medical record) * [ ] has been ruled out and a more appropriate diagnosis for this patient?s condition is * Other (please specify) * Unable to determine Use of terms such as suspected, likely, concern for, or probable (associated with a specific diagnosis that is being evaluated, monitored, or treated as if it exists) are acceptable and can be coded in the inpatient setting, when documented at the time of discharge. Thank you, Karie Puckett [facility], CDIS Extension: [phone] Please use your independent medical judgment in providing your response. THIS QUERY IS PART OF THE PERMANENT MEDICAL RECORD
== END 2021-05-06 12:55 | disposition home or self-care (01) | DRG 663 ==
LOC: HO.ED 20:52 → HO.EDOVER 23:15 → HO.IMC 05-05 05:28
PROVIDERS: Nurse Practitioner Family; Obstetrics & Gynecology; Physician Assistant; Admitting Provider Internal Medicine; Emergency Provider Emergency Medicine; PCP Nurse Practitioner; Visit Provider Hospitalist
DX: D62 Acute posthemorrhagic anemia (principal); N73.9 Female pelvic inflammatory disease, unspecified; Z20.822 Contact with and (suspected) exposure to COVID-19; Z79.3 Long term (current) use of hormonal contraceptives
CPT/HCPCS: 36415; 36430; 74177; 76856; 80048; 80076; 81001; 81025; 83605; 83690; 83735; 84702; 85025; 86780; 86803; 86850; 86900; 86901; 86923; 87040; 87086; 87340; 87389; 87480; 87491; 87510; 87591; 87635; 87660; 93005; 93975; 96361; 96365; 96375; 96376; 99219; 99285; J0696; J1200; J1885; J2270; J2405; J3010; P9016; Q0163; Q9967

== ENCOUNTER 2021-05-25 13:03 | Outpatient (REF) | payer MEDICAID, SELFPAY ==
[2021-05-26 03:02] LABS: CT PCR NOT DETECTED (Not Detect.); NG PCR NOT DETECTED (Not Detect.)
== END 2021-05-25 13:04 | disposition home or self-care (01) ==
LOC: HO.LAB 13:03
PROVIDERS: PCP Nurse Practitioner; Visit Provider Obstetrics & Gynecology
DX: N73.0 Acute parametritis and pelvic cellulitis (principal); Z20.2 Contact with and (suspected) exposure to infections with a predominantly sexual mode of transmission
CPT/HCPCS: 81025; 87491; 87591; 99212

== ENCOUNTER 2021-08-25 13:03 | Outpatient (REF) | payer MEDICAID, SELFPAY ==
[2021-08-26 01:54] LABS: CT PCR NOT DETECTED (Not Detect.); NG PCR NOT DETECTED (Not Detect.)
== END 2021-08-25 13:04 | disposition home or self-care (01) ==
LOC: HO.LAB 13:03
PROVIDERS: PCP Nurse Practitioner; Visit Provider Obstetrics & Gynecology
DX: A74.9 Chlamydial infection, unspecified (principal); N93.9 Abnormal uterine and vaginal bleeding, unspecified
CPT/HCPCS: 87491; 87591; 99212

== ENCOUNTER 2021-09-08 16:14 | Outpatient (REF) | payer MEDICAID, SELFPAY ==
[2021-09-08 16:31] LABS: MANUAL DIFF FLAG NO
[2021-09-08 17:35] LABS: Basophils Percent Auto 0.5 % (0-2); Eosinophils Absolute Auto 0.3 X10*3/uL (0.0-0.4); Eosinophils Percent Auto 2.9 % (0-4); Hematocrit 25.6 % (37.0-47.0); Hemoglobin 7.2 g/dl (12.0-16.0); Imm Gran Abs Auto 0.03 X10*3/uL (0.00-0.03); Imm Gran Pct Auto 0.3 % (0.0-0.4); Lymphocytes Absolute Auto 1.6 X10*3/uL (1.2-4.9); Lymphocytes Percent Auto 18.7 % (20-40); Mean Corpuscular HGB Conc 28.1 g/dl (31.0-35.0); Mean Corpuscular Hemoglobin 18.9 pg (27.0-33.0); Mean Corpuscular Volume 67.4 fL (80.0-98.0); Mean Platelet Volume 10.8 fL (9.4-12.3); Monocytes Absolute Auto 1.2 X10*3/uL (0.1-1.2); Monocytes Percent Auto 13.8 % (2-11); Neutrophils Absolute Auto 5.5 x10*3/uL (2.0-8.3); Neutrophils Percent Auto 63.8 % (45-73); Platelet Count 483 X10*3/uL (160-400); Red Cell Distribution Width 18.3 % (11.0-16.0); White Blood Count 8.6 X10*3/uL (4.8-10.8)
[2021-09-08 18:13] LABS: HCG Quantitative < 2 mIU/mL; Thyroid Stimulating Hormone 1.32 uIU/mL (0.32-4.0)
== END 2021-09-08 16:15 | disposition home or self-care (01) ==
LOC: HO.LAB 16:14
PROVIDERS: PCP Nurse Practitioner; Visit Provider Obstetrics & Gynecology
DX: N93.9 Abnormal uterine and vaginal bleeding, unspecified (principal)
CPT/HCPCS: 36415; 84443; 84702; 85025

== ENCOUNTER → 2021-10-19 12:02 | Outpatient (BNVA) | payer MEDICAID, SELFPAY | PROVIDERS: Visit Provider Obstetrics & Gynecology | DX: Z13.89 Encounter for screening for other disorder (principal) ==

== ENCOUNTER 2024-02-20 15:57 | Outpatient (REF) | payer MEDICAID, SELFPAY ==
[2024-02-20 18:13] LABS: Hemoglobin 7.3 g/dl (12.0-16.0); Imm Gran Abs Auto 0.02 X10*3/uL (0.00-0.03); Imm Gran Pct Auto 0.3 % (0.0-0.4); MANUAL DIFF FLAG SCAN; SCAN SMEAR FLAG 1
[2024-02-20 18:15] LABS: Basophils Absolute Auto 0.1 X10*3/uL (0.0-0.2); Basophils Percent Auto 1.1 % (0-2); Eosinophils Absolute Auto 0.3 X10*3/uL (0.0-0.4); Hematocrit 27.1 % (37.0-47.0); Lymphocytes Percent Auto 28.1 % (20-40); Mean Corpuscular HGB Conc 26.9 g/dl (31.0-35.0); Mean Corpuscular Hemoglobin 16.2 pg (27.0-33.0); Monocytes Percent Auto 13.7 % (2-11); Neutrophils Absolute Auto 3.7 x10*3/uL (2.0-8.3); Neutrophils Percent Auto 52.8 % (45-73); Platelet Count 428 X10*3/uL (160-400); Red Cell Distribution Width 21.3 % (11.0-16.0); White Blood Count 7.1 X10*3/uL (4.8-10.8)
[2024-02-20 18:28] LABS: Mean Corpuscular Volume 60.2 fL (80.0-98.0); PLT ABN DIST 1
[2024-02-20 18:49] LABS: Ferritin 5 ng/mL (10-122); HCG Quantitative < 2 mIU/mL; TSH reflex Free T4 1.02 uIU/mL (0.32-4.0)
[2024-02-20 19:27] LABS: SLIDE REVIEW VERIFIED
== END 2024-02-20 15:58 | disposition home or self-care (01) ==
LOC: HO.CHCLDS 15:57
PROVIDERS: Visit Provider Internal Medicine
DX: D50.9 Iron deficiency anemia, unspecified (principal); R42 Dizziness and giddiness
CPT/HCPCS: 36415; 82728; 84443; 84702; 85025

== ENCOUNTER 2025-04-10 10:23 | Outpatient (REF) | payer MEDICAID, SELFPAY ==
[2025-04-10 14:26] LABS: Hematocrit 36.3 % (37.0-47.0); Hemoglobin 10.8 g/dl (12.0-16.0); Imm Gran Abs Auto 0.02 X10*3/uL (0.00-0.03); Imm Gran Pct Auto 0.3 % (0.0-0.4); Lymphocytes Absolute Auto 2.0 X10*3/uL (1.2-4.9); MANUAL DIFF FLAG SCAN; Mean Corpuscular HGB Conc 29.8 g/dl (31.0-35.0); Mean Corpuscular Hemoglobin 22.0 pg (27.0-33.0); Mean Corpuscular Volume 73.9 fL (80.0-98.0); NRBC Abs Auto 0.000 X10*3/uL (0.0-0.012); NRBC Pct Auto 0.0 /100WBC (0.0-0.2); PLT CLUMP 1; Red Blood Count 4.91 X10*6/uL (4.20-5.50); SCAN SMEAR FLAG 1
[2025-04-10 14:32] LABS: White Blood Count 6.0 X10*3/uL (4.8-10.8)
[2025-04-10 14:45] LABS: Platelet Count 203 X10*3/uL (160-400)
[2025-04-10 17:16] LABS: Anion Gap 12 (12-20); Blood Urea Nitrogen 9 mg/dL (9-16); Calcium 9.6 mg/dL (8.4-10.2); Carbon Dioxide 24 mmol/L (22-29); Chloride 108 mmol/L (96-108); Estimated Glomerular Filt Rate > 60; Iron 66 mcg/dL (30-160); Percent Iron Saturation 18 % (15-50); Potassium 3.3 mmol/L (3.3-5.1); Sodium 141 mmol/L (135-145); Total Iron Binding Capacity 366 mcg/dL (228-428); Unsaturated Iron Binding 300 ug/dL
[2025-04-10 17:21] LABS: Ferritin 14 ng/mL (10-122)
== END 2025-04-10 10:24 | disposition home or self-care (01) ==
LOC: HO.CHCLDS 10:23
DX: Z00.00 Encounter for general adult medical examination without abnormal findings (principal)
CPT/HCPCS: 36415; 80048; 82306; 82728; 83540; 84443; 85025